=== PATIENT | female | born 1945 | race Caucasian/White ===

== ENCOUNTER 2019-09-05 10:19 | Outpatient (CLI) | payer MEDICARE, OTHER, SELFPAY ==
--- NOTE | 2019-09-05 10:24 | MM_ITS ---
WS: [id number] BILATERAL DIGITAL SCREENING MAMMOGRAPHY WITH CAD CLINICAL INFORMATION: SCREENING HISTORY: Screening mammogram. No current complaints. COMPARISON: August 05, 2018 TECHNIQUE: Bilateral CC and MLO views. FINDINGS: The breasts are composed of heterogeneous fibroglandular density tissue, which can limit the detectio n of small underlying mass lesions. Punctate and lucent calcifications. Secretory calcifications. Sta ble clustered calcifications. Stable nodular bilateral parenchymal tissue. No suspicious mass, asymme try, calcifications, or architectural distortion. No evidence of malignancy. MM/[id number] IMPRESSION: BI-RADS: 2-Benign FOLLOW UP: 1 Year Follow-up Recommend return to annual screening mammography.
== END 2019-09-05 10:20 | disposition home or self-care (01) ==
LOC: RADSHAW 10:20
PROVIDERS: Family Provider Family Medicine; PCP Family Medicine; Visit Provider Family Medicine
DX: Z12.31 Encounter for screening mammogram for malignant neoplasm of breast (principal)
CPT/HCPCS: 77067

== ENCOUNTER 2020-02-02 11:28 | Outpatient (CLI) | payer MEDICARE, OTHER, SELFPAY ==
--- NOTE | 2020-02-02 11:38 | MM_ITS ---
WS: [id number] DIAGNOSTIC RIGHT DIGITAL MAMMOGRAM WITH CAD RIGHT breast ultrasound, limited HISTORY: RT BREAST LUMP 11 O'CLOCK, new palpable nodule COMPARISON: 09/05/2019, 08/05/2018, 07/27/2017, 07/21/2016, 07/19/2014 Technique: CC, MLO and ML views. Spot compression RIGHT CC. Breast composition: There are scattered areas of fibroglandular density. The palpable area correspon ds to a slightly lobulated 8 mm mass which has been described on multiple prior studies. This is slig htly tubular and elongated. No significant increase in size. There are additional scattered calcifica tions and asymmetries throughout the RIGHT breast which are stable since at least 07/27/2017. RIGHT breast ultrasound: Ultrasound directed to the palpable abnormality reveals a lobulated complex cystic mass or dilated du ct measuring 7 x 7 x 6 mm. This could be a sebaceous cyst as it does extend very close to the surface of the breast. There is an additional minimally complex cyst at 12:00. MM/[place] [id number] IMPRESSION: BI-RADS: 2-Benign FOLLOW UP: See Report Patient to return to annual screening mammography. Clinically if there is a pal pable mass of concern surgical excision can be performed.
== END 2020-02-02 11:29 | disposition home or self-care (01) ==
LOC: RADSHAW 11:35
PROVIDERS: PCP Family Medicine; Visit Provider Nurse Practitioner Family
DX: N63.11 Unspecified lump in the right breast, upper outer quadrant (principal)
CPT/HCPCS: 76642; 77065

== ENCOUNTER 2020-03-16 10:54 | Outpatient (CLI) | payer MEDICARE, OTHER, SELFPAY ==
--- NOTE | 2020-03-16 11:05 | XR_ITS ---
WS: [id number] HIP WITH PELVIS RIGHT TECHNIQUE: 3 views of the right hip with pelvis CLINICAL INFORMATION: HIP PAIN, RIGHT COMPARISON: None. FINDINGS: Normal right hip. No acute fractures. Normal visualized right pubic rami. XR/XR hip RT 2-3V wo/w pel* [id number] IMPRESSION: Normal right hip
== END 2020-03-16 10:55 | disposition home or self-care (01) ==
PROVIDERS: PCP Family Medicine; Visit Provider Family Medicine
DX: M25.551 Pain in right hip (principal)
CPT/HCPCS: 73502

== ENCOUNTER → 2020-06-15 09:59 | Day surgery (SDC) | payer MEDICARE, OTHER, SELFPAY ==
--- NOTE | 2020-06-15 10:25 | PC.NURSE ---
Creatinine clearance is 72.4ml/min today. Calcium is WNL 9.5 from blood work on Jun,. Per guidelines, okay to proceed with Reclast.
[2020-06-15 10:32] VITALS: BP 147/87; PULSE 120; RESP 18; TEMP 37.3; O2SAT 98
== END ==
PROVIDERS: PCP Family Medicine; Visit Provider Family Medicine
DX: M81.0 Age-related osteoporosis without current pathological fracture (principal)
CPT/HCPCS: 96365; J3489

== ENCOUNTER 2020-09-07 08:33 | Outpatient (CLI) | payer MEDICARE, OTHER, SELFPAY ==
--- NOTE | 2020-09-07 08:39 | MM_ITS ---
WS: [id number] BILATERAL SCREENING DIGITAL MAMMOGRAM WITH CAD HISTORY: SCREENING COMPARISON: 02/02/2020, 09/05/2019, 08/05/2018 Bilateral CC and MLO views submitted. Computer aided detection analyzed. Breast composition: The breasts are heterogeneously dense, which may obscure small masses. No suspici ous masses, microcalcifications or architectural distortion. There are numerous calcifications and no dules within each breast. Very similar to prior studies. Due to the number of calcifications subtle c hanges are very difficult to visualize. MM/[place] [id number] IMPRESSION: BI-RADS: 2-Benign FOLLOW UP: 1 Year Follow-up
== END 2020-09-07 08:34 | disposition home or self-care (01) ==
LOC: RADSHAW 08:37
PROVIDERS: PCP Family Medicine; Visit Provider Nurse Practitioner Family
DX: Z12.31 Encounter for screening mammogram for malignant neoplasm of breast (principal)
CPT/HCPCS: 77067

== ENCOUNTER → 2021-10-01 09:47 | Day surgery (SDC) | payer MEDICARE, OTHER, SELFPAY ==
[2021-10-01 10:21] VITALS: BMI 25.6
[2021-10-01 10:22] VITALS: BP 137/82; PULSE 116; RESP 18; TEMP 36.8; O2SAT 95
[2021-10-01 10:33] LABS: Blood Urea Nitrogen 27 mg/dL (8-23); Calcium 9.8 mg/dL (8.5-10.5)
--- NOTE | 2021-10-01 10:40 | PC.NURSE ---
Creatnine Clearance 77.5. Calcium WNL. Okay to proceed with Reclast infusion.
== END ==
PROVIDERS: PCP Family Medicine; Visit Provider Family Medicine
DX: M81.0 Age-related osteoporosis without current pathological fracture (principal)
CPT/HCPCS: 36415; 82310; 82565; 84520; 96365; J3489

== ENCOUNTER 2021-10-11 10:31 | Outpatient (CLI) | payer MEDICARE, OTHER, SELFPAY ==
--- NOTE | 2021-10-11 10:42 | MM_ITS ---
WS: [id number] BILATERAL SCREENING DIGITAL MAMMOGRAM WITH CAD HISTORY: SCREENING COMPARISON: 09/07/2020, 02/02/2020 and 07/27/2017 Bilateral CC and MLO views submitted. Computer aided detection analyzed. Breast composition: There are scattered areas of fibroglandular density. No suspicious masses, microc alcifications or architectural distortion. Numerous bilateral asymmetries and nodules and calcificati ons within each breast. No suspicious mass or increasing size of mass. Calcifications are benign. MM/[place] [id number] IMPRESSION: BI-RADS: 2-Benign FOLLOW UP: 1 Year Follow-up
== END 2021-10-11 10:32 | disposition home or self-care (01) ==
LOC: RADSHAW 10:33
PROVIDERS: PCP Family Medicine; Visit Provider Family Medicine
DX: Z12.31 Encounter for screening mammogram for malignant neoplasm of breast (principal)
CPT/HCPCS: 77067

== ENCOUNTER → 2021-12-16 12:31 | Outpatient (BNVA) | payer MEDICARE, OTHER, SELFPAY | PROVIDERS: PCP Family Medicine; Visit Provider Internal Medicine Cardiovascular Disease | DX: I49.9 Cardiac arrhythmia, unspecified (principal); I49.1 Atrial premature depolarization; I49.3 Ventricular premature depolarization | CPT/HCPCS: 93225 ==

== ENCOUNTER → 2022-03-25 14:16 | Outpatient (BNVA) | payer MEDICARE, OTHER, SELFPAY | PROVIDERS: PCP Family Medicine; Visit Provider Clinical Nurse Specialist Adult Health | DX: U07.1 COVID-19 (principal); J30.9 Allergic rhinitis, unspecified; J34.2 Deviated nasal septum; M26.629 Arthralgia of temporomandibular joint, unspecified side; N39.0 Urinary tract infection, site not specified; R11.0 Nausea | CPT/HCPCS: 80053; 81000; 85025; 85651; 86140; 87086 ==

== ENCOUNTER → 2022-04-08 11:12 | Outpatient (BNVA) | payer MEDICARE, OTHER, SELFPAY | PROVIDERS: PCP Family Medicine; Visit Provider Internal Medicine Cardiovascular Disease | DX: I47.1 Supraventricular tachycardia (principal); I10 Essential (primary) hypertension; Z86.39 Personal history of other endocrine, nutritional and metabolic disease; R00.2 Palpitations; Z87.891 Personal history of nicotine dependence | CPT/HCPCS: 36415; 80048; 83735; 84443; 99204 ==

== ENCOUNTER → 2022-05-27 10:20 | Outpatient (BNVA) | payer MEDICARE, OTHER, SELFPAY | PROVIDERS: PCP Family Medicine; Visit Provider Family Medicine | DX: Z86.39 Personal history of other endocrine, nutritional and metabolic disease (principal); I10 Essential (primary) hypertension; I47.1 Supraventricular tachycardia | CPT/HCPCS: 80053; 80061; 84443; 85025 ==

== ENCOUNTER 2022-06-07 13:59 | Emergency (ER) | payer MEDICARE, OTHER, SELFPAY ==
[2022-06-07 14:09] VITALS: BP 188/98; PULSE 67; RESP 17; TEMP 36.4; O2SAT 97; BMI 23.9
--- NOTE | 2022-06-07 14:31 | ECG_ITS ---
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 Measurements Intervals [place] Rate: 64 P: 87 MN: 175 QRS: 85 QRSD: 90 T: 83 QT: 427 QTc: 442 Interpretive Statements SINUS RHYTHM No previous ECG available for comparison Electronically Signed On 06-08-2022 10:14:49 CDT by Derian Woodson M.D. [id number]
--- NOTE | 2022-06-07 14:38 | XRR_ITS ---
PROCEDURE INFORMATION: Exam: XR Chest Exam date and time: 06/07/2022 3:33 PM Age: 76 years old Clinical indication: Other: Palp; Additional info: Palpitations TECHNIQUE: Imaging protocol: Radiologic exam of the chest. Views: 1 view. COMPARISON: CT chest con [id number] 12/03/2018 9:29 AM FINDINGS: Lungs: Unremarkable. No consolidation. Pleural spaces: Unremarkable. No pleural effusion. No pneumothorax. Heart/Mediastinum: Unremarkable. No cardiomegaly. Bones/joints: Unremarkable. XR/XR chest 1V portable [id number] IMPRESSION: No acute findings.
--- NOTE | 2022-06-07 15:30 | ED_ITS ---
HPI - Arrhythmia/Palpitations General: Chief Complaint: Arrhythmia/Palpitations Stated Complaint: Headache Time Seen by Provider: 06/07/22 15:30 History of Present Illness: Ms. Aviles is a 76-year-old lady with significant past medical history of hypertension, hyperlipidemia, recent medication switch to flecainide presenting to the emergency department due to generalized illness. Onset of symptoms was yesterday about 4 PM. She noticed fluttering in her heart associated with frontal headache which feels like pressure with some associated muscular neck pain. Additionally she has felt nauseous. Overall intensity symptoms is moderate to severe. Denies frequent history of headaches. No other specific changes in health, exacerbating, or alleviating factors identified. Onset (ago): hour(s) Duration: constant Severity: moderate Associated symptoms: Reports nausea and other Review of Systems General: Reports: 10 or more systems reviewed and unremarkable except in HPI and below GI: Reports: nausea PFSH ED PFSH: Medical History History of arthritis History of gastroesophageal reflux (GERD) History of hyperlipidemia Hypertension IBS (irritable bowel syndrome) Surgical History S/P hysterectomy Family History Father Cancer Mother Cancer Brother No problems noted. Son Atrial fibrillation Other Hypertension Social History Smoking and tobacco status: former smoker Quit status (tobacco): has quit using tobacco Year quit tobacco: 1990 Former quit date comment: 3 PPD x 20 years Physical Exam Const: COMMON NORMALS: patient oriented x3 and alert GENERAL APPEARANCE: cooperative, well developed and ill appearing (mildly) HENMT: COMMON NORMALS: normocephalic and atraumatic HEAD & SCALP: normocephalic and atraumatic THROAT: posterior oropharynx normal Eye: COMMON NORMALS: conjunctivae normal CONJUNCTIVA: Yes conjunctivae normal SCLERA: sclerae normal Neck/C-Spine: COMMON NORMALS: supple and no meningeal signs GENERAL: Yes trachea midline Resp: COMMON NORMALS: clear to auscultation bilaterally EFFORT & INSPECTION: Yes able to speak in complete sentences AUSCULTATION: clear to auscultation bilaterally Cardio: COMMON NORMALS: regular rate and regular rhythm RATE: regular rate RHYTHM: regular rhythm GI: COMMON NORMALS: Soft to palpation PALPATION: Yes Soft to palpation and No Tenderness to palpation present (GI) Extremity: GENERAL: Yes normal exam except as noted and No edema Neuro: COMMON NORMALS: patient oriented x3, CN's II-XII intact bilaterally, moves all extremities, no focal motor deficits and no sensory deficits noted SENSORIUM/ORIENTATION: Yes alert and No Orientation impaired MENINGEAL SIGNS: Yes no meningeal signs Psych: COMMON NORMALS: mental status grossly normal and Normal thought process present THOUGHT PROCESS: Normal thought process present Course Vital Signs: Vital signs: Vital Signs Temperature 97.6 F 06/07/22 14:09 Pulse Rate 97 06/07/22 17:42 Respiratory Rate 18 06/07/22 17:42 Blood Pressure 188/98 06/07/22 14:09 Pulse Oximetry 97 06/07/22 17:42 Oxygen Delivery Me thod 06/07/22 17:42 MDM - Arrhythmia/Palpitations Medical Decision Making 76-year-old lady presenting with generalized illness. Patient is mildly ill however nontoxic on exam, no neurologic deficits appreciated associated with headache. EKG shows sinus rhythm, no STEMI. Laboratory studies with minimal leukocytosis, no significant metabolic abnormalities. 2-hour delta troponin is negative. Flu and COVID negative. Chest x-ray with no lobar consolidation or pneumothorax. CT head negative for acute pathology. Patient improved with symptom treatment in the emergency department. Most likely cause of patient's symptoms is unclear The results of ED evaluation were discussed with the patient including prescriptions and/or symptomatic cares (if applicable) including appropriate and responsible use, followup plan, and return precautions. The patient verbalized understanding and felt safe for discharge. Medical Records I reviewed the patient's medical records. Lab Data I reviewed the patient's lab results. : 06/07/22 15:25 06/07/22 15:25 Radiology Impressions Chest X-Ray 06/07/22 14:38 IMPRESSION: No acute findings. Head CT 06/07/22 16:31 IMPRESSION: No acute intracranial abnormality. Laboratory Results WBC 10.2 10^3/uL (4.0-10.0) H 06/07/22 15:25 RBC 5.07 10^6/uL (4.1-5.3) 06/07/22 15:25 Hgb 14.9 g/dL (11.5-15.3) 06/07/22 15:25 Hct 46.4 % (37.0-47.0) 06/07/22 15:25 MCV 91.5 fl (81-99) 06/07/22 15:25 MCH 29.4 pg (28.0-34.0) 06/07/22 15:25 MCHC 32.1 g/dL (30.0-36.0) 06/07/22 15:25 RDW 14.6 % (12.1-15.1) 06/07/22 15:25 Plt Count 441 10^3/cmm (130-400) H 06/07/22 15:25 MPV 9.4 fL (7.4-10.4) 06/07/22 15:25 Neut % (Auto) 76.1 % 06/07/22 15:25 Lymph % (Auto) 15.9 % 06/07/22 15:25 Robeson % (Auto) 6.0 % 06/07/22 15:25 Eos % (Auto) 1.0 % 06/07/22 15:25 Baso % (Auto) 0.7 % 06/07/22 15:25 Neut # (Auto) 7.78 10^3/uL (1.8-7.7) H 06/07/22 15:25 Lymph # (Auto) 1.6 10^3/uL (0.8-4.8) 06/07/22 15:25 Robeson # (Auto) 0.6 10^3/uL (0.2-0.9) 06/07/22 15:25 Eos # (Auto) 0.1 10^3/uL (0.0-0.8) 06/07/22 15:25 Baso # (Auto) 0.1 10^3/uL (0.0-0.1) 06/07/22 15: Nucleated RBC % (auto) 0 % 06/07/22 15:25 Nucleated RBCs # 0.0 /100WBC 06/07/22 15:25 Sodium 139 mmol/L (136-145) 06/07/22 15:25 Potassium 3.9 mmol/L (3.5-5.1) 06/07/22 15:25 Chloride 100 mmol/L (98-107) 06/07/22 15:25 Carbon Dioxide 26 mmol/L (22-29) 06/07/22 15:25 Anion Gap 16.9 (5-19) 06/07/22 15:25 BUN 21 mg/dL (8-23) 06/07/22 15:25 Creatinine 0.5 mg/dL (0.5-0.9) 06/07/22 15:25 GFR Calculation Not Reportable 06/07/22 15:25 Glucose 97 mg/dL (65-115) 06/07/22 15:25 Calculated Osmolality 291 mOsm/kg (285-295) 06/07/22 15:25 Calcium 9.3 mg/dL (8.5-10.5) 06/07/22 15:25 Magnesium 2.3 mg/dL (1.7-2.3) 06/07/22 15:25 Total Bilirubin 0.6 mg/dL (0.15-1.2) 06/07/22 15:25 AST 14 U/L (0-32) 06/07/22 15:25 ALT 9 U/L (0-33) 06/07/22 15:25 Alkaline Phosphatase 97 U/L (35-105) 06/07/22 15:25 Troponin T Baseline 14 ng/L (0-10) H 06/07/22 15:25 Troponin T 120 Minute 10.56 ng/L (0-10) H 06/07/22 17:41 Delta Troponin T -3.44 ABS# (0-10) L 06/07/22 17:41 NT-Pro-B Natriuret Pep 828 pg/mL (0-450) H 06/07/22 15:25 Total Protein 6.8 g/dL (6.6-8.7) 06/07/22 15:25 Albumin 4.5 g/dL (3.5-5.2) 06/07/22 15:25 Globulin 2.3 g/dL (1.3-4.6) 06/07/22 15:25 TSH 0.87 uIU/mL (0.27-4.20) 06/07/22 15:25 Influenza Type A Ag negative (Negative) 06/07/22 16:45 Influenza Type B Ag negative (Negative) 06/07/22 16:45 SARS-CoV-2 Ag (Rapid) negative (Negative) 06/07/22 16:45 Discharge Plan Discharge Patient Disposition: Home Clinical Impression: Headache, Hypertension, Palpitations, Malaise and fatigue Condition: Stable Prescriptions: No Action meloxicam 15 mg tablet 15 mg PO DAILY aspirin [Adult Aspirin Regimen] 81 mg tablet,delayed release (DR/EC) 81 mg PO DAILY magnesium oxide 250 mg magnesium tablet 250 mg PO DAILY Qty: 90 0RF potassium gluconate 600 mg (99 mg) tablet 600 mg PO DAILY Qty: 90 0RF fluoxetine 20 mg capsule 20 mg PO DAILY fluticasone propionate 50 mcg/actuation spray,suspension 2 spray intranasal DAILY Rx Instructions: administer into each nostril atorvastatin 10 mg tablet 10 mg PO DAILY lisinopril 5 mg tablet 5 mg PO DAILY Qty: 180 3RF diclofenac sodium [Voltaren Arthritis Pain] 1 % gel 4 g topical QID Qty: 100 0RF Rx Instructions: apply to left leg up to qid. lisinopril-hydrochlorothiazide 20-12.5 mg tablet 0.5 tab PO DAILY PRN (Reason: Take 0.5 tab if BP >140/90) Qty: 90 3RF Hold Instructions: Doctor's Order metoprolol tartrate 25 mg tablet 25 mg PO BID Qty: 180 2RF Hold Instructions: Patient No Longer Taking flecainide 50 mg tablet 50 mg PO Q12H Qty: 60 3RF Discharge Orders: Discharge ED (Routine); Ordered 06/07/22 Ordered By: Irwin Hawk Referrals: Kati Cohen MD [Primary Care Provider] - Discharge Diet: Usual diet Discharge Activity: Increase activity as tolerated Patient Instructions: Heart Palpitations (ED), Acute Headache (ED), Hypertension (ED) Activity Restrictions/Additional Instructions: Thank you for visiting the emergency department. You were seen and evaluated for headache and palpitations as well as generalized symptoms. The exact cause of your symptoms is unclear. As discussed, I recommend follow-up with cardiology. Return to the emergency department for worsening symptoms, any new neurologic symptoms, or anything else that you are concerned about a feel needs emergency department evaluation. Coding Level of Care Code ED Diesel Stationary Engineer for Consuelo Khan
[2022-06-07 15:35] LABS: Basophils # 0.1 10^3/uL (0.0-0.1); Basophils % 0.7 %; Eosinophils # 0.1 10^3/uL (0.0-0.8); Hematocrit 46.4 % (37.0-47.0); Hemoglobin 14.9 g/dL (11.5-15.3); Lymphocytes # 1.6 10^3/uL (0.8-4.8); Lymphocytes % 15.9 %; Mean Corpuscular HGB Conc 32.1 g/dL (30.0-36.0); Mean Corpuscular Hemoglobin 29.4 pg (28.0-34.0); Mean Corpuscular Volume 91.5 fl (81-99); Mean Platelet Volume 9.4 fL (7.4-10.4); Monocytes # 0.6 10^3/uL (0.2-0.9); Neutrophils # 7.78 10^3/uL (1.8-7.7); Neutrophils % 76.1 %; Nucleated Red Blood Cells % 0 %; Platelet Count 441 10^3/cmm (130-400); Red Blood Count 5.07 10^6/uL (4.1-5.3); Red Cell Distribution Width 14.6 % (12.1-15.1); White Blood Count 10.2 10^3/uL (4.0-10.0)
[2022-06-07 15:52] LABS: Troponin(5th) Baseline 14 ng/L (0-10)
[2022-06-07 16:06] LABS: Alanine Aminotransferase 9 U/L (0-33); Albumin Level 4.5 g/dL (3.5-5.2); Alkaline Phosphatase 97 U/L (35-105); Anion Gap 16.9 (5-19); Aspartate Amino Transferase 14 U/L (0-32); Blood Urea Nitrogen 21 mg/dL (8-23); Calcium 9.3 mg/dL (8.5-10.5); Carbon Dioxide 26 mmol/L (22-29); Chloride 100 mmol/L (98-107); Globulin 2.3 g/dL (1.3-4.6); Glucose 97 mg/dL (65-115); Magnesium 2.3 mg/dL (1.7-2.3); NT Pro B Type Natriuretic Pept 828 pg/mL (0-450); Osmolality Calculated 291 mOsm/kg (285-295); Potassium 3.9 mmol/L (3.5-5.1); Sodium 139 mmol/L (136-145); Thyroid Stimulating Hormone 0.87 uIU/mL (0.27-4.20); Total Bilirubin 0.6 mg/dL (0.15-1.2); Total Protein 6.8 g/dL (6.6-8.7)
[2022-06-07] MEDS: sodium chloride 0.9% 1,000 ML 999 ML IV (16:31)
--- NOTE | 2022-06-07 16:31 | CTR_ITS ---
PROCEDURE INFORMATION: Exam: CT Head Without Contrast Exam date and time: 06/07/2022 5:01 PM Age: 76 years old Clinical indication: Pain; Headache not specified TECHNIQUE: Imaging protocol: Computed tomography of the head without contrast. Radiation optimization: All CT scans at this facility use at least one of these dose optimization techniques: automated exposure control; mA and/or kV adjustment per patient size (includes targeted exams where dose is matched to clinical indication); or iterative reconstruction. COMPARISON: No relevant prior studies available. RADIATION DOSE METRICS: Total DLP (mGy-cm): 946.37 FINDINGS: Brain: No hemorrhage. No edema. Moderate diffuse cerebral atrophy and mild sequela of chronic small vessel ischemic disease. No mass effect. Cerebral ventricles: No ventriculomegaly. Paranasal sinuses: Visualized sinuses are unremarkable. No fluid levels. Mastoid air cells: Visualized mastoid air cells are well aerated. Bones/joints: Unremarkable. No acute fracture. Soft tissues: Unremarkable. CT/CT head wo con* [id number] IMPRESSION: No acute intracranial abnormality.
[2022-06-07] MEDS: diphenhydrAMINE 50 mg/mL SDV 1mL 12.5 MG IVP (16:32)
[2022-06-07] MEDS: metoclopramide 5 mg/mL SDV 2 mL IVP (16:33)
[2022-06-07] MEDS: ketorolac 30 mg/mL INJ 15 MG IVP (16:34)
--- NOTE | 2022-06-07 16:39 | ECG_ITS ---
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 Measurements Intervals [place] Rate: 64 P: 82 OK: 154 QRS: 60 QRSD: 89 T: 65 QT: 411 QTc: 424 Interpretive Statements SINUS RHYTHM Compared to ECG 06/07/2022 14:31:04 No significant changes Electronically Signed On 06-08-2022 10:18:18 CDT by Derian Woodson M.D. [id number]
[2022-06-07 17:06] LABS: SARS Covid-2 Antigen negative (Negative)
[2022-06-07 17:07] LABS: Influenza A by IFA negative (Negative); Influenza B by IFA negative (Negative)
[2022-06-07 17:42] VITALS: PULSE 97; RESP 18; O2SAT 97
[2022-06-07 18:12] LABS: Troponin 5 2HR 10.56 ng/L (0-10)
[2022-06-07 18:27] LABS: Troponin 5 2HR Delta -3.44 ABS# (0-10)
== END 2022-06-07 18:52 | disposition home or self-care (01) ==
PROVIDERS: Emergency Provider Emergency Medicine; PCP Internal Medicine Cardiovascular Disease
DX: R51.9 Headache, unspecified (principal); I10 Essential (primary) hypertension; R00.2 Palpitations; R53.81 Other malaise; R53.83 Other fatigue; Z79.82 Long term (current) use of aspirin; Z20.822 Contact with and (suspected) exposure to COVID-19; E78.5 Hyperlipidemia, unspecified; Z87.891 Personal history of nicotine dependence
CPT/HCPCS: 36415; 70450; 71045; 80053; 83735; 83880; 84443; 84484; 85025; 87426; 87804; 93005; 96361; 96374; 96375; 99285; J1200; J1885; J2765; J7030

== ENCOUNTER → 2022-06-11 10:01 | Outpatient (BNVA) | payer MEDICARE, OTHER, SELFPAY | PROVIDERS: PCP Pediatrics; Visit Provider Nurse Practitioner Family | DX: I10 Essential (primary) hypertension (principal); I47.1 Supraventricular tachycardia; Z87.891 Personal history of nicotine dependence | CPT/HCPCS: 99213; 99214 ==

== ENCOUNTER → 2022-09-25 10:29 | Outpatient (BNVA) | payer MEDICARE, OTHER, SELFPAY | PROVIDERS: PCP Family Medicine; Visit Provider Internal Medicine Cardiovascular Disease | DX: I47.1 Supraventricular tachycardia (principal); I10 Essential (primary) hypertension; E78.5 Hyperlipidemia, unspecified; Z87.891 Personal history of nicotine dependence | CPT/HCPCS: 99213 ==

== ENCOUNTER → 2022-10-10 09:40 | Outpatient (BNVA) | payer MEDICARE, OTHER, SELFPAY | PROVIDERS: PCP Family Medicine; Visit Provider Dermatology | DX: L72.0 Epidermal cyst (principal) | CPT/HCPCS: 88304 ==

== ENCOUNTER 2022-10-16 12:21 | Outpatient (CLI) | payer MEDICARE, OTHER, SELFPAY ==
--- NOTE | 2022-10-16 13:01 | MM_ITS ---
WS: [id number] Bilateral screening 3D tomosynthesis digital mammogram, 10/16/2022 Clinical Data: SCREENING Comparison: 10/11/2021, 09/07/2020, 02/02/2020, 09/05/2019, 08/05/2018, 07/27/2017, 07/21/2016, 07/20/2015 , 07/19/2014, 07/18/2013, 07/02/2012 06/19/2011 05/23/2010, 05/03/2009, 05/02/2008 Findings: The breast parenchymal pattern shows glandular tissue. No spiculated masses or clustered calcificatio ns are seen. There are no secondary signs of carcinoma. There are scattered ductal and other benign c alcifications throughout both breasts unchanged. MM/[place] [id number] Impression: 1. Negative bilateral mammogram unchanged. 2. Recommend annual screening mammograms. BIRADS: 1-Negative FOLLOW UP: 1 Year Follow-up The CAD job checker was used.
== END 2022-10-16 12:22 | disposition home or self-care (01) ==
LOC: RAD 12:27
PROVIDERS: PCP Family Medicine; Visit Provider Family Medicine
DX: Z12.31 Encounter for screening mammogram for malignant neoplasm of breast (principal)
CPT/HCPCS: 77063; 77067

== ENCOUNTER 2022-10-27 08:49 | Outpatient (CLI) | payer MEDICARE, OTHER, SELFPAY ==
[2022-10-27 10:38] LABS: Blood Urea Nitrogen 15 mg/dL (8-23); Calcium 9.5 mg/dL (8.5-10.5); Carbon Dioxide 31 mmol/L (22-29); Chloride 101 mmol/L (98-107); Glucose 108 mg/dL (65-115); NT Pro B Type Natriuretic Pept 158 pg/mL (0-450); Osmolality Calculated 289 mOsm/kg (285-295); Sodium 139 mmol/L (136-145)
[2022-10-27 10:46] LABS: Anion Gap 11.5 (5-19); Potassium 4.5 mmol/L (3.5-5.1)
== END 2022-10-27 08:50 | disposition home or self-care (01) ==
LOC: LAB 08:54
PROVIDERS: PCP Family Medicine; Visit Provider Nurse Practitioner Family
DX: I10 Essential (primary) hypertension (principal); I50.9 Heart failure, unspecified
CPT/HCPCS: 36415; 80048; 83880

== ENCOUNTER 2022-11-14 13:34 | Outpatient (CLI) | payer MEDICARE, OTHER, SELFPAY ==
--- NOTE | 2022-11-14 14:00 | USCV_ITS ---
AvilesKarina clayton Age: 77 Gender: F : 1945 Exam Date: 11/14/2022 14:28 Ordering Phys: Nichol Oneill Technologist: [place] [facility] [place]: chf BP: 124 / 74 HR: 67 Rhythm: Sinus Technical Quality: Adequate MEASUREMENTS (Male / Female) Normal Values 2D ECHO LV Diastolic Diameter PLAX 2.9 cm 4.2 - 5.9 / 3.9 - 5.3 cm LV Systolic Diameter PLAX 2.0 cm IVS Diastolic Thickness 1.2 cm 0.6 - 1.0 / 0.6 - 0.9 cm IVS Systolic Thickness 1.2 cm LVPW Diastolic Thickness 1.3 cm 0.6 - 1.0 / 0.6 - 0.9 cm LVPW Systolic Thickness 1.5 cm LVOT Diameter 1.9 cm LV Ejection Fraction 2D Teich 59.6 % LV Ejection Fraction MOD 2C 67.3 % LV Ejection Fraction 2C AL 67.4 % LA Diameter 3.2 cm IVC Diameter 1.6 cm M-MODE LV Diastolic Diameter MM 4.9 cm 4.2 - 5.9 / 3.9 - 5.3 cm LV Systolic Diameter MM 3.4 cm LV Ejection Fraction MM Teich 59.9 % IVS Diastolic Thickness MM 1.5 cm 0.6 - 1.0 / 0.6 - 0.9 cm IVS Systolic Thickness MM 1.9 cm LVPW Diastolic Thickness MM 1.3 cm 0.6 - 1.0 / 0.6 - 0.9 cm LVPW Systolic Thickness MM 1.9 cm RV Diastolic Diameter MM 1.4 cm Aortic Annulus Diameter 3.5 cm LA Ao Ratio MM 0.9 MV E Point Septal Separation 1.9 cm DOPPLER AV Peak Velocity 147.0 cm/s LVOT Peak Velocity 94.0 cm/s AV Area Cont Eq vti 2.1 cm squared AV Area Cont Eq pk 1.9 cm squared MV Area PHT 5.0 cm squared Mitral E to A Ratio 1.0 MV E' Velocity 53.0 cm/s Mitral E to MV E' Ratio 8.1 Mitral E to LV E' Lateral Ratio 7.2 Mitral E to LV E' Septal Ratio 9.2 TR Peak Velocity 134.3 cm/s TR Peak Gradient 7.2 mmHg TV Peak E Velocity 89.0 cm/s Right Atrial Pressure 3.0 mmHg Pulmonary Artery Systolic Pressu 10.2 mmHg RV Acceleration Time 0.1 s FINDINGS Left Ventricle Left ventricle is normal in size. LV systolic function is normal with EF of 60 to 65%. No regional wall motion abnormalities are seen. Right Ventricle Normal in size and function. Right Atrium Normal in size Left Atrium Normal in size Mitral Valve Structurally normal mitral valve. Trace mitral regurgitation. Aortic Valve Structurally normal aortic valve. No significant stenosis or regurgitation is seen Tricuspid Valve Mild tricuspid regurgitation. Pulmonary artery systolic pressure is normal. Pulmonic Valve Not well-visualized. Pericardium Normal Aorta Normal in size IVC Appears to be normal CONCLUSIONS LV systolic function is normal with EF of 60-65% Trace mitral regurgitation Mild tricuspid regurgitation No comparison studies are available Jesse Blankenship MD (Electronically Signed) Final Date: 14 November 2022 16:04 S
== END 2022-11-14 13:35 | disposition home or self-care (01) ==
LOC: RAD 13:37
PROVIDERS: PCP Clinical Nurse Specialist Adult Health; Visit Provider Nurse Practitioner Family
DX: I11.0 Hypertensive heart disease with heart failure (principal); I50.9 Heart failure, unspecified
CPT/HCPCS: 93306

== ENCOUNTER → 2022-11-18 09:41 | Outpatient (BNVA) | payer MEDICARE, OTHER, SELFPAY | PROVIDERS: PCP Clinical Nurse Specialist Adult Health; Visit Provider Family Medicine | DX: I10 Essential (primary) hypertension (principal) | CPT/HCPCS: 80053; 80061; 85025 ==

== ENCOUNTER → 2022-12-16 08:26 | Outpatient (BNVA) | payer MEDICARE, OTHER, SELFPAY | PROVIDERS: PCP Clinical Nurse Specialist Adult Health; Visit Provider Clinical Nurse Specialist Adult Health | DX: I10 Essential (primary) hypertension (principal) | CPT/HCPCS: 80048; 85025 ==

== ENCOUNTER 2022-12-19 12:47 | Outpatient (CLI) | payer MEDICARE, OTHER, SELFPAY ==
--- NOTE | 2022-12-19 13:00 | XR_ITS ---
WS: [id number] DEXA (DUAL ENERGY X-RAY ABSORPTIOMETRY) Bone mineral density was performed using a So1 machine. HISTORY: osteopenia COMPARISON: 12/21/2018 Lumbar spine BMD (L1-L4): 1.032 g/cm2 T score: -1.2 Z score: 0.6 Total hip BMD: Left: 0.727 g/cm2. T score: -2.2 Z score: -0.2 Right: 0.695 g/cm2. T score: -2.5 Z score: -0.5 10 year probability of a major osteoporotic fracture is 30.2%. Compared to the prior study from 12/21/2018. Lumbar spine bone mineral density has increased by 6.0%. Bilateral hips bone mineral density has increased by 2.5%. XR/XR DEXA axial skeleton* [id number] IMPRESSION: OSTEOPOROSIS based upon the WHO classification for females. Bone mineral density has increased within both the lumbar spine and hips since the prior study. Patient is still at increased risk for fracture.
== END 2022-12-19 12:48 | disposition home or self-care (01) ==
LOC: RAD 12:54
PROVIDERS: PCP Clinical Nurse Specialist Adult Health; Visit Provider Clinical Nurse Specialist Adult Health
DX: M85.80 Other specified disorders of bone density and structure, unspecified site (principal); Z78.0 Asymptomatic menopausal state; M81.0 Age-related osteoporosis without current pathological fracture; I10 Essential (primary) hypertension; Z79.899 Other long term (current) drug therapy
CPT/HCPCS: 77080; 80053; 80061; 85025

== ENCOUNTER → 2022-12-31 09:38 | Outpatient (BNVA) | payer MEDICARE, OTHER, SELFPAY | PROVIDERS: PCP Clinical Nurse Specialist Adult Health; Visit Provider Clinical Nurse Specialist Adult Health | DX: J20.8 Acute bronchitis due to other specified organisms (principal); B96.89 Other specified bacterial agents as the cause of diseases classified elsewhere; Z00.00 Encounter for general adult medical examination without abnormal findings; M85.80 Other specified disorders of bone density and structure, unspecified site | CPT/HCPCS: 82306 ==

== ENCOUNTER 2023-01-25 03:22 | Emergency (ER) | payer MEDICARE, OTHER, SELFPAY ==
[2023-01-25 03:31] VITALS: BP 131/70; PULSE 68; RESP 18; TEMP 36.5; O2SAT 95; BMI 25.4
[2023-01-25 04:00] VITALS: BP 131/79; PULSE 70; O2SAT 96
--- NOTE | 2023-01-25 04:28 | PC.NURSE ---
Pt refuses to be on vital monitor at this time. Pt states there is no need for that
[2023-01-25] MEDS: ketorolac 30 mg/mL INJ IM (05:46)
[2023-01-25] MEDS: predniSONE 20 mg Tablet 40 MG PO (05:48)
[2023-01-25] MEDS: oxyCODONE-APAP 5-325 mg Tablet 2 TAB PO (05:49)
[2023-01-25 06:21] VITALS: BP 162/75; PULSE 60; RESP 18; O2SAT 100
--- NOTE | 2023-01-25 15:10 | W.ED.BACK ---
HPI - Back Pain/Injury General: Chief Complaint: Back Pain/Injury Stated Complaint: right leg pain Time Seen by Provider: 01/25/23 05:21 History of Present Illness: 77 year old female with a prior history of sciatic leg pain. She presents with pain to her right buttock, radiating down her posterior thigh and lateral right leg. No foot drop. She's had these symptoms before. She has taken Tylenol and Advil at home without much relief. she could not sleep last night. No significant numbness or tingling. No centralized back pain. No loss of control of bowel or bladder function. No saddle anesthesia. [facility] ED PFS: Medical History Allergic rhinitis due to allergen History of arthritis History of gastroesophageal reflux (GERD) History of hyperlipidemia Hypertension IBS (irritable bowel syndrome) Osteopenia Osteoporosis Paroxysmal SVT (supraventricular tachycardia) Surgical History Hx of breast biopsy age 23, benign Hx of dilation and curettage Hx of right knee surgery S/P hysterectomy Family History Father Cancer Mother Cancer Brother No problems noted. Son Atrial fibrillation Other Hypertension Social History Smoking and tobacco status: former smoker Quit status (tobacco): has quit using tobacco Year quit tobacco: 1990 Former quit date comment: 3 PPD x 20 years Marital status: / Physical Exam Const: COMMON NORMALS: no acute distress GENERAL APPEARANCE: cooperative; not ill appearing and not frail appearing HENMT: COMMON NORMALS: normocephalic, atraumatic and Normal external nose present HEAD & SCALP: normocephalic and atraumatic FACE & SINUS: normal facial exam and face symmetric NOSE: Normal external nose present Eye: COMMON NORMALS: Equal, round and reactive pupils present and EOMs intact bilaterally PUPIL: Yes Equal, round and reactive pupils present Neck/C-Spine: GENERAL: Yes trachea midline Chest: CHEST: Yes Symmetrical chest wall rise Resp: COMMON NORMALS: normal respiratory effort, No retractions, No use of accessory muscles and clear to auscultation bilaterally AUSCULTATION: clear to auscultation bilaterally Cardio: COMMON NORMALS: regular rate and regular rhythm RATE: regular rate RHYTHM: regular rhythm GI: COMMON NORMALS: Normal to inspection, nondistended, normoactive bowel sounds present Back/Pelvis: OTHER: No midline tenderness. Tenderness over the right buttocks. Straight leg raise test mildly increases symptoms on the right. Sensation is intact. No weakness with dorsiflexion, hip flexion, plantar flexion. Extremity: COMMON NORMALS: no pedal edema Neuro: JEN COMA SCALE: document GCS findings Jen coma scale eye opening: Spontaneous [place] coma scale verbal response: Orientated [place] coma scale motor response: Obey commands Jen coma scale total score: 15 SENSORY EXAM: Yes extremities (intact) Psych: COMMON NORMALS: speech normal SPEECH: Yes normal speech Skin: COMMON NORMALS: no rashes or lesions noted GENERAL SKIN EXAM: no rashes or lesions noted Course Vital Signs: Vital signs: Vital Signs Temperature 97.7 F 01/25/23 03:31 Pulse Rate 60 01/25/23 06:21 Respiratory Rate 18 01/25/23 06:21 Blood Pressure 162/75 01/25/23 06:21 Pulse Oximetry 100 01/25/23 06:21 Oxygen Delivery Me thod Room Air 01/25/23 04:00 MDM - Back Pain/Injury Medical Decision Making Classic sciatica symptoms. She's had these symptoms before. Will treat with a tapering dose of steroid, pain control period outpatient follow up. Red flag symptoms were reviewed with the patient, for return. Discharge Plan Discharge Patient Disposition: Home Clinical Impression: Sciatica Condition: Stable Prescriptions: New hydrocodone-acetaminophen 5-325 mg tablet 1 tab PO Q8H PRN (Reason: pain) Qty: 10 0RF Medrol (Kenny) 4 mg tablets,dose pack See Rx Instructions .ROUTE .COMPLEX Qty: 21 0RF Rx Instructions: orally per package directions No Action meloxicam 15 mg tablet 15 mg PO DAILY aspirin [Adult Aspirin Regimen] 81 mg tablet,delayed release (DR/EC) 81 mg PO DAILY diclofenac sodium [Voltaren Arthritis Pain] 1 % gel 4 g topical QID PRN Rx Instructions: apply to left leg up to qid. loratadine [Allergy Relief (loratadine)] 10 mg tablet 10 mg PO DAILY montelukast [Singulair] 10 mg tablet 10 mg PO DAILY Qty: 90 2RF zoledronic aitz-ruujmtjq-ftgyo [Reclast] 5 mg/100 mL piggyback 1 ea IV .yearly amoxicillin-pot clavulanate [Augmentin] 500-125 mg tablet 1 tab PO TID 10 Days Qty: 30 0RF lisinopril-hydrochlorothiazide 20-12.5 mg tablet 0.5 tab PO BID Qty: 90 3RF Hold Instructions: Doctor's Order atorvastatin 10 mg tablet 10 mg PO DAILY Qty: 30 11RF benzonatate 100 mg capsule 100 mg PO TID PRN (Reason: cough) Qty: 45 0RF flecainide 50 mg tablet 50 mg PO Q12H Qty: 90 3RF Discharge Orders: Discharge ED (Routine); Ordered 01/25/23 Ordered By: Bk Demarco Referrals: Gustavo Laws, LOGISTICS OPERATIONS MANAGER [Primary Care Provider] - 1-3 days Patient Instructions: Sciatica (ED), Opioid Safety, Pain Management Coding Level of Care Code ED Director Of Manufacturing Operations for Consuelo Khan
== END 2023-01-25 05:50 | disposition home or self-care (01) ==
PROVIDERS: Emergency Provider Emergency Medicine; PCP Clinical Nurse Specialist Adult Health
DX: M54.30 Sciatica, unspecified side (principal); Z79.82 Long term (current) use of aspirin; Z87.891 Personal history of nicotine dependence; E78.5 Hyperlipidemia, unspecified; I10 Essential (primary) hypertension
CPT/HCPCS: 96372; 99284; J1885; J7512

== ENCOUNTER → 2023-03-26 11:00 | Outpatient (BNVA) | payer MEDICARE, OTHER, SELFPAY | PROVIDERS: PCP Clinical Nurse Specialist Adult Health; Visit Provider Internal Medicine Cardiovascular Disease | DX: R00.2 Palpitations (principal); U09.9 Post COVID-19 condition, unspecified; I10 Essential (primary) hypertension; E78.5 Hyperlipidemia, unspecified; Z87.891 Personal history of nicotine dependence | CPT/HCPCS: 99213 ==

== ENCOUNTER → 2023-04-01 08:16 | Outpatient (BNVA) | payer MEDICARE, OTHER, SELFPAY | PROVIDERS: PCP Clinical Nurse Specialist Adult Health; Visit Provider Clinical Nurse Specialist Adult Health | DX: Z00.00 Encounter for general adult medical examination without abnormal findings (principal); I10 Essential (primary) hypertension; M81.0 Age-related osteoporosis without current pathological fracture | CPT/HCPCS: 82306 ==

== ENCOUNTER → 2023-04-21 13:53 | Outpatient (BNVA) | payer MEDICARE, OTHER, SELFPAY | PROVIDERS: PCP Clinical Nurse Specialist Adult Health; Visit Provider Dermatology | DX: L73.8 Other specified follicular disorders (principal); D18.01 Hemangioma of skin and subcutaneous tissue; L72.0 Epidermal cyst; L98.8 Other specified disorders of the skin and subcutaneous tissue; L81.4 Other melanin hyperpigmentation | CPT/HCPCS: 99213 ==

== ENCOUNTER 2023-05-19 13:26 | Oncology outpatient (recurring) (ONCR) | payer MEDICARE, OTHER, SELFPAY ==
[2023-05-19 14:05] VITALS: BP 106/69; PULSE 65; RESP 16; TEMP 36.7; O2SAT 96
[2023-05-19] MEDS: zoledronic acid 5 MG in empty flexible container 1 EACH 400 MG IV (14:22)
[2023-05-19 14:45] VITALS: BP 98/63; PULSE 61; RESP 16; TEMP 36.5; O2SAT 97
== END 2023-06-09 23:59 | disposition home or self-care (01) ==
LOC: ONCMED 13:27
PROVIDERS: PCP Clinical Nurse Specialist Adult Health; Visit Provider Clinical Nurse Specialist Adult Health
DX: M81.0 Age-related osteoporosis without current pathological fracture (principal)
CPT/HCPCS: 96365; J3489

== ENCOUNTER → 2023-06-11 11:05 | Outpatient (BNVA) | payer MEDICARE, OTHER, SELFPAY | PROVIDERS: PCP Clinical Nurse Specialist Adult Health; Visit Provider Clinical Nurse Specialist Adult Health | DX: E55.9 Vitamin D deficiency, unspecified (principal); M85.80 Other specified disorders of bone density and structure, unspecified site | CPT/HCPCS: 82306 ==

== ENCOUNTER → 2023-08-11 11:01 | Outpatient (BNVA) | payer OTHER, SELFPAY | PROVIDERS: PCP Clinical Nurse Specialist Adult Health; Visit Provider Clinical Nurse Specialist Adult Health | DX: I10 Essential (primary) hypertension (principal) | CPT/HCPCS: 80053; 82306; 85025 ==

== ENCOUNTER 2023-10-05 12:36 | Outpatient (CLI) | payer OTHER, SELFPAY ==
--- NOTE | 2023-10-05 12:42 | XR_ITS ---
WS: [id number] Exam: XR chest 2V* [id number] Date/Time of Exam: 10/05/2023 12:51 PM Reason For Exam: shortness of breath, worse when lying back Comparison 06/07/2022. The lungs are fully expanded and clear. Normal cardiomediastinal silhouette. Mild dextroscoliosis of the T-spine. Old compression deformity of T8. No pleural effusion. IMPRESSION: 1. No acute cardiopulmonary process.
== END 2023-10-05 12:37 | disposition home or self-care (01) ==
PROVIDERS: PCP Clinical Nurse Specialist Adult Health; Visit Provider Clinical Nurse Specialist Adult Health
DX: R06.02 Shortness of breath (principal)
CPT/HCPCS: 71046

== ENCOUNTER 2023-10-22 09:32 | Outpatient (CLI) | payer OTHER, SELFPAY ==
--- NOTE | 2023-10-22 09:51 | MM_ITS ---
WS: [id number] BILATERAL SCREENING DIGITAL TOMOSYNTHESIS MAMMOGRAM WITH CAD HISTORY: SCREENING COMPARISON: 10/16/2022, 10/11/2021 Bilateral CC and MLO views with tomosynthesis and synthetic mammography submitted. Computer aided det ection analyzed. Breast composition: There are scattered areas of fibroglandular density. No suspicious masses, microc alcifications or architectural distortion. Numerous scattered nodules and calcifications. As compared to the prior study no interval change. IMPRESSION: MM/[place] [id number] BI-RADS: 2-Benign FOLLOW UP: 1 Year Follow-up
== END 2023-10-22 09:33 | disposition home or self-care (01) ==
LOC: RAD 09:32
PROVIDERS: PCP Clinical Nurse Specialist Adult Health; Visit Provider Clinical Nurse Specialist Adult Health
DX: Z12.31 Encounter for screening mammogram for malignant neoplasm of breast (principal)
CPT/HCPCS: 77063; 77067

== ENCOUNTER 2023-12-09 08:43 | Outpatient (CLI) | payer MEDICARE, OTHER, SELFPAY ==
[2023-12-09 09:11] VITALS: PULSE 64; RESP 18; O2SAT 99
[2023-12-09] MEDS: albuterol 2.5 mg/3 mL Neb INHALATION (09:11)
[2023-12-09 09:15] VITALS: PULSE 73
== END 2023-12-09 08:44 | disposition home or self-care (01) ==
LOC: RT 08:44
PROVIDERS: PCP Clinical Nurse Specialist Adult Health; Visit Provider Clinical Nurse Specialist Adult Health
DX: R05.3 Chronic cough (principal); R06.02 Shortness of breath
CPT/HCPCS: 94060; J7613

== ENCOUNTER → 2024-03-17 10:32 | Outpatient (BNVA) | payer MEDICARE, OTHER, SELFPAY | PROVIDERS: PCP Clinical Nurse Specialist Adult Health; Visit Provider Internal Medicine Cardiovascular Disease | DX: I10 Essential (primary) hypertension (principal); E78.5 Hyperlipidemia, unspecified; J41.0 Simple chronic bronchitis; I47.19 Other supraventricular tachycardia; Z87.891 Personal history of nicotine dependence | CPT/HCPCS: 99213 ==

== ENCOUNTER → 2024-04-21 12:51 | Outpatient (BNVA) | payer MEDICARE, OTHER, SELFPAY | PROVIDERS: PCP Clinical Nurse Specialist Adult Health; Visit Provider Nurse Practitioner Family | DX: L57.0 Actinic keratosis (principal); D18.01 Hemangioma of skin and subcutaneous tissue; L72.0 Epidermal cyst; L98.8 Other specified disorders of the skin and subcutaneous tissue; L81.4 Other melanin hyperpigmentation | CPT/HCPCS: 17000; 99213 ==

== ENCOUNTER 2024-06-15 14:19 | Outpatient (CLI) | payer MEDICARE, OTHER, SELFPAY ==
--- NOTE | 2024-06-15 14:25 | XR_ITS ---
WS: [id number] XR ribs LT 2V* [id number] REASON FOR EXAM: LEFT SIDED RIB PAIN FINDINGS: No rib fracture or other focal bone abnormality of the left ribs. No underlying lung or pleural abnormality. XR/XR ribs LT 2V* [id number] IMPRESSION: No significant rib abnormality.
== END 2024-06-15 14:20 | disposition home or self-care (01) ==
LOC: RAD 14:22
PROVIDERS: PCP Nurse Practitioner Family; Visit Provider Nurse Practitioner Family
DX: R07.81 Pleurodynia (principal)
CPT/HCPCS: 71100

== ENCOUNTER 2024-08-01 09:18 | Outpatient (CLI) | payer MEDICARE, OTHER, SELFPAY ==
--- NOTE | 2024-08-01 | ECG_ITS ---
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 Interpretive Statements LEXISCAN: Procedure: At the baseline, the blood pressure was 161/110mmHg with a heart rate of 67 bpm. The electrocardiogram showed normal sinus rhythm, normal axis with normal ST and T's. The Lexiscan was infused over a period of 20 seconds. A total of 0.4 mg of Lexiscan was infused. The stress phase was continued for a total of 5 minutes. Heart rate was at the end of stress phase was 85bpm and a blood pressure of 189/87mmHg. The EKG at the peak infusion revealed normal sinus rhythm with no significant ST-T wave changes. Sestamibi was injected 20 seconds after the Lexiscan infusion. Blood pressure at the end of recovery phase was 174/88 mmHg with a heart rate of 75 bpm. Conclusion: 1. Normal EKG response to Lexiscan infusion 2. No Lexiscan induced chest pain or cardiac arrhythmia. 3. Normal blood pressure and heart rate response. 4. Sestamibi/sestamibi perfusion scan pending; see separate report. Electronically Signed On 08-07-2024 20:34:21 SWEATBAND DRUMMER by Jesse Blankenship M.D. [email or web address]
[2024-08-01 09:35] VITALS: BMI 23.9
--- NOTE | 2024-08-01 09:39 | NMCV_ITS ---
NM aakash perf SPECT r/s* [id number] Karina Aviles Age: 78 Gender: F : 1945 Exam Date: 08/01/2024 10:26 Ordering Phys: Candace Cifuentes Technologist: MURPHY Gomez Exam Location: [facility] Indications: cp STRESS TEST Please see separate stress test report in [facility] for full findings IMAGE PROTOCOL Rest/Stress 1 Lexiscan Day Radiopharmaceutical Dose (mCi) Administration Site Administered by Rest: Tc-99m 10.7 IV MURPHY Gomez Sestamibi Stress:Tc-99m 32.6 IV MURPHY Ravi Sestamibi Rest: 01-Aug-2024 60 Discovery 630 Stress: 01-Aug-2024 30 Discovery 630 0.4mg Lexiscan. Images obtained in supine and prone position. SPECT RESULTS Technical Quality: Good Raw Data Analysis: Normal Image Corrections: No attenuation or motion correction applied Summed Stress Score: 14 Summed Rest Score: 7 Summed Difference Score: 7 PERFUSION FINDINGS There is a medium sized area of moderate intensity, partially reversible perfusion defect seen in the apical, apical septal isaac. This is consistent with medium sized area of prior infarct with medium sized area of lissa-infarct ischemia seen in the LAD territory. Large area of mostly fixed perfusion defect seen in the inferior wall. This is consistent with large area of prior infarct with small sized area of lissa-infarct ischemia in the RCA territory. FUNCTIONAL RESULTS (calculated via Gated SPECT) Stress Image LV EF (%): 57 Stress EDV (mL):77 TID: 0.79 Stress ESV (mL):33 FUNCTIONAL FINDINGS: There is normal left ventricular systolic function. IMPRESSIONS 1. Abnormal myocardial perfusion imaging with medium sized area of prior infarct with medium sized area of lissa-infarct ischemia in the LAD territory. 2. Large area of prior infarct with small area of lissa-infarct ischemia seen in RCA territory 3. LV systolic function is normal Jesse Blankenship MD (Electronically Signed) Final Date: 03 August 2024 16:02 S
[2024-08-01] MEDS: regadenoson 0.4 Mg/5 ml Syringe IVP (10:55)
[2024-08-01 11:14] VITALS: BP 174/88; PULSE 74
== END 2024-08-01 09:19 | disposition home or self-care (01) ==
LOC: CDL 09:19
PROVIDERS: PCP Nurse Practitioner Family; Visit Provider Nurse Practitioner Family
DX: R07.89 Other chest pain (principal); R00.0 Tachycardia, unspecified; I10 Essential (primary) hypertension; R94.39 Abnormal result of other cardiovascular function study; R06.02 Shortness of breath
CPT/HCPCS: 36415; 78452; 93017; 96374; A9500; J2785

== ENCOUNTER 2024-08-04 12:21 | Emergency (ER) | payer MEDICARE, OTHER, SELFPAY ==
[2024-08-04] VITALS (10 sets, daily range): BP systolic 99–199; BP diastolic 58–109; PULSE 61–75; RESP 16–24; TEMP 36.5–36.6; O2SAT 95–99; BMI 23.8
--- NOTE | 2024-08-04 12:51 | ECG_ITS ---
[email or web address] Date: 2024-08-04 Pat Name: Karina Aviles Department: Room: Gender: Female Hat Body Sorter: : 1945 Requested By: Anthony Simon Order Number: [id number] Pamela MD: Jesse Blankenship M.D. Measurements Intervals [place] Rate: 69 P: 75 SD: 177 QRS: 55 QRSD: 82 T: 64 QT: 396 QTc: 427 Interpretive Statements SINUS RHYTHM WITH SINUS ARRHYTHMIA Compared to ECG 06/07/2022 17:30:56 No significant changes Electronically Signed On 08-05-2024 18:32:46 SENIOR CORPORATE STRATEGY MANAGER by Jesse Blankenship M.D. [id number]
--- NOTE | 2024-08-04 13:41 | CT_ITS ---
WS: [id number] CT HEAD NONCONTRAST HISTORY: htn TECHNIQUE: Contiguous axial imaging performed through the brain. Bone and soft tissue windows. Sagitt al and coronal reformats reviewed. All CT scans at [facility] use at least one of these dose optimization techniques: automated exposure control; mA and/or kV adjustment per patient size (includ es targeted exams where dose is matched to clinical indication); or iterative reconstruction. DLP: 931.48 mGy.cm COMPARISON: 06/07/2022 No acute intracranial hemorrhage, midline shift or mass effect. Moderate to severe symmetric atrophy and moderate small vessel ischemic changes. No prior infarct. Mo derate cerebellar atrophy. Ventricles: Ventricles and extra-axial spaces are mildly prominent on the basis of atrophy. Paranasal sinuses: As visualized are clear. Mastoid air cells: Well pneumatized. Calvarium and scalp: Skull is intact with no soft tissue edema or swelling. Advanced atherosclerotic plaque distal carotid arteries. CT/CT head wo con* [id number] IMPRESSION: 1. No acute intracranial hemorrhage or edema. 2. Moderate to severe atrophy with moderate small vessel ischemic disease.
[2024-08-04 13:47] LABS: Basophils # 0.1 10^3/uL (0.0-0.1); Basophils % 0.6 %; Eosinophils # 0.1 10^3/uL (0.0-0.8); Eosinophils % 0.7 %; Hematocrit 42.9 % (36-47); Lymphocytes # 1.5 10^3/uL (0.8-4.8); Lymphocytes % 13.3 %; Mean Corpuscular HGB Conc 31.5 g/dL (30-55); Mean Corpuscular Hemoglobin 27.9 pg (27-33); Mean Corpuscular Volume 88.6 fl (85-98); Mean Platelet Volume 9.5 fL (7.4-10.4); Monocytes # 0.8 10^3/uL (0.2-0.9); Monocytes % 7.3 %; Neutrophils # 8.95 10^3/uL (1.8-7.7); Neutrophils % 77.8 %; Nucleated Red Blood Cells % 0 %; Platelet Count 480 10^3/cmm (157-399); Red Blood Count 4.84 10^6/uL (3.85-5.65); Red Cell Distribution Width 15.5 % (12.1-15.1); White Blood Count 11.51 10^3/uL (3.29-11.43)
[2024-08-04 14:04] LABS: Alanine Aminotransferase 7 U/L (0-33); Alkaline Phosphatase 138 U/L (35-105); Anion Gap 14.8 (5-19); Aspartate Amino Transferase 16 U/L (0-32); Blood Urea Nitrogen 11 mg/dL (8-23); Calcium 9.3 mg/dL (8.5-10.5); Carbon Dioxide 26 mmol/L (22-29); Chloride 103 mmol/L (98-107); Creatinine Clr Calc Pharmacy 47.4998; Globulin 2.6 g/dL (1.3-4.6); Glucose 105 mg/dL (65-115); Osmolality Calculated 290 mOsm/kg (285-295); Potassium 3.8 mmol/L (3.5-5.1); Sodium 140 mmol/L (136-145); Total Bilirubin 0.6 mg/dL (0.15-1.2); Total Protein 6.6 g/dL (6.6-8.7)
[2024-08-04] MEDS: hyDRALAzine 20 mg/mL INJ 1 mL 10 MG IVP (14:25)
--- NOTE | 2024-08-04 14:55 | ED_ITS ---
HPI - Headache 2 General: Chief Complaint: Headache Stated Complaint: abn ab (BP / just had stress test thursday) Time Seen by Provider: 08/04/24 12:51 Source: patient Mode of arrival: ambulatory Limitations: no limitations History of Present Illness: 78-year-old female states that she had a history of high blood pressure states she has been having some hypertension along with a headache over the last 2 to 3 days states that she recently changed her blood pressure medicines currently on lisinopril she denies any fevers denies any chest pain denies any vomiting or diarrhea. Associated symptoms: Deny chest pain, fever(s), nausea, rash or vomiting Related Data Home Medications Medication Instructions Recorded Confirmed aspirin 81 mg tablet,delayed 81 mg PO DAILY 12/10/20 08/04/24 release (Adult Aspirin Regimen) diclofenac sodium 1 % topical gel 4 g topical QID PRN Pain 09/25/22 08/04/24 (Voltaren Arthritis Pain) fluticasone propionate 50 1 spray intranasal BID 05/26/23 08/04/24 mcg/actuation nasal spray,suspension (Allergy Relief (fluticasone)) budesonide 90 mcg/actuation breath 1 inh inhalation BID PRN Shortness 03/17/24 08/04/24 activated powder inhaler Of Breath (Pulmicort Flexhaler) lisinopril 20 mg tablet 20 mg PO DAILY 06/14/24 08/04/24 atorvastatin 10 mg tablet 10 mg PO QPM 08/04/24 08/04/24 lisinopril 10 1 tab PO BID 08/04/24 08/04/24 mg-hydrochlorothiazide 12.5 mg tablet meloxicam 15 mg tablet 15 mg PO .QOD 08/04/24 08/04/24 Previous Rx's Medication Instructions Recorded flecainide 50 mg tablet 50 mg PO Q12H #180 tabs 04/12/24 Allergies Allergy/AdvReac Type Severity Reaction Status Date / Time No Known Allergies Allergy Verified 08/04/24 12:34 Review of Systems 2 Const: Denies: fever(s), chills, body aches or change in appetite Eyes: Denies: blurry vision or eye discomfort ENMT: Denies: throat pain or dental pain Card: Denies: chest pain Resp: Denies: dyspnea GI: Denies: abdominal pain, nausea, vomiting or diarrhea Musc: Denies: neck pain or back pain Skin/Breast: Denies: rash Neuro: Reports: headache(s) All/Imm: Denies: urticaria PFSH ED 2 PFSH: Medical History COPD (chronic obstructive pulmonary disease) PFT 2023 consistent with obstructive disease Hypertension Hyperlipidemia Vitamin D deficiency Osteoporosis IBS (irritable bowel syndrome) Paroxysmal SVT (supraventricular tachycardia) History of gastroesophageal reflux (GERD) History of arthritis Allergic rhinitis due to allergen Acquired deviated nasal septum TMJ arthralgia Surgical History Hx of right knee surgery Hx of dilation and curettage Hx of breast biopsy age 23, benign S/P hysterectomy Family History Father Cancer Mother Cancer Brother No problems noted. Son Atrial fibrillation Other Hypertension Social History Smoking and tobacco/nicotine status: former use of tobacco/nicotine Quit status (tobacco/nicotine): has quit using Year quit tobacco: 1990 Former quit date comment: 3 PPD x 20 years Marital status: / Physical Exam 2 Const: COMMON NORMALS: no acute distress, patient oriented x3 and healthy appearing HENMT: COMMON NORMALS: normocephalic and atraumatic HEAD & SCALP: n ormocephalic and atraumatic Eye: COMMON NORMALS: Equal, round and reactive pupils present and EOMs intact bilaterally PUPIL: Yes Equal, round and reactive pupils present Neck/C-Spine: COMMON NORMALS: full ROM and supple Chest: COMMONS NORMALS: normal inspection of the chest and normal palpation of entire chest wall Resp: COMMON NORMALS: normal respiratory effort, No retractions, No use of accessory muscles and clear to auscultation bilaterally AUSCULTATION: clear to auscultation bilaterally Cardio: COMMON NORMALS: regular rate, regular rhythm and No murmurs present (Cardio) RATE: regular rate RHYTHM: regular rhythm GI: COMMON NORMALS: Normal to inspection, nondistended, normoactive bowel sounds present, Soft to palpation, non-tender and no masses PALPATION: Yes Soft to palpation Extremity: COMMON NORMALS: normal to inspection and full ROM Neuro: COMMON NORMALS: patient oriented x3, moves all extremities and no focal motor deficits Psych: COMMON NORMALS: mental status grossly normal, Normal thought process present and cooperative THOUGHT PROCESS: Normal thought process present Skin: COMMON NORMALS: no rashes or lesions noted and no wounds GENERAL SKIN EXAM: no rashes or lesions noted Course 2 Vital Signs: Vital signs: Vital Signs Temperature 97.9 F 08/04/24 12:59 Pulse Rate 64 08/04/24 16:39 Respiratory Rate 16 08/04/24 16:39 Blood Pressure 155/97 08/04/24 16:39 Pulse Oximetry 99 08/04/24 16:39 Oxygen Delivery Me thod Room Air 08/04/24 16:00 MDM - Headache Medical Decision Making Patient presents here with a headache along with hypertension her blood pressure here is improved her headaches improved as well head CT is normal no signs of subarachnoid hemorrhage patient is stable for discharge follow-up with PCP return if worsening. Medical Records I reviewed the patient's medical records. Lab Data I reviewed the patient's lab results. 08/04/24 13:30 08/04/24 13:[address] 08/04/24 13:41 IMPRESSION: 1. No acute intracranial hemorrhage or edema. 2. Moderate to severe atrophy with moderate small vessel ischemic disease. Laboratory Results WBC 11.51 10^3/uL (3.29-11.43) H 08/04/24 13:30 RBC 4.84 10^6/uL (3.85-5.65) 08/04/24 13:30 Hgb 13.50 g/dL (11.27-16.99) 08/04/24 13:30 Hct 42.9 % (36-47) 08/04/24 13:30 MCV 88.6 fl (85-98) 08/04/24 13:30 MCH 27.9 pg (27-33) 08/04/24 13:30 MCHC 31.5 g/dL (30-55) 08/04/24 13:30 RDW 15.5 % (12.1-15.1) H 08/04/24 13:30 Plt Count 480 10^3/cmm (157-399) H 08/04/24 13:30 MPV 9.5 fL (7.4-10.4) 08/04/24 13:30 Neut % (Auto) 77.8 % 08/04/24 13:30 Lymph % (Auto) 13.3 % 08/04/24 13:30 [place] % (Auto) 7.3 % 08/04/24 13:30 Eos % (Auto) 0.7 % 08/04/24 13:30 Baso % (Auto) 0.6 % 08/04/24 13:30 Neut # (Auto) 8.95 10^3/uL (1.8-7.7) H 08/04/24 13:30 Lymph # (Auto) 1.5 10^3/uL (0.8-4.8) 08/04/24 13:30 [place] # (Auto) 0.8 10^3/uL (0.2-0.9) 08/04/24 13:30 Eos # (Auto) 0.1 10^3/uL (0.0-0.8) 08/04/24 13:30 Baso # (Auto) 0.1 10^3/uL (0.0-0.1) 08/04/24 13:30 Nucleated RBC % (auto) 0 % 08/04/24 13:30 Nucleated RBCs # 0.0 /100WBC 08/04/24 13:30 Sodium 140 mmol/L (136-145) 08/04/24 13:30 Potassium 3.8 mmol/L (3.5-5.1) 08/04/24 13:30 Chloride 103 mmol/L (98-107) 08/04/24 13:30 Carbon Dioxide 26 mmol/L (22-29) 08/04/24 13:30 Anion Gap 14.8 (5-19) 08/04/24 13:30 BUN 11 mg/dL (8-23) 08/04/24 13:30 Creatinine 0.5 mg/dL (0.5-0.9) 08/04/24 13:30 GFR Calculation Not Reportable 08/04/24 13:30 Glucose 105 mg/dL (65-115) 08/04/24 13:30 Calculated Osmolality 290 mOsm/kg (285-295) 08/04/24 13:30 Calcium 9.3 mg/dL (8.5-10.5) 08/04/24 13:30 Total Bilirubin 0.6 mg/dL (0.15-1.2) 08/04/24 13:30 AST 16 U/L (0-32) 08/04/24 13:30 ALT 7 U/L (0-33) 08/04/24 13:30 Alkaline Phosphatase 138 U/L (35-105) H 08/04/24 13:30 Total Protein 6.6 g/dL (6.6-8.7) 08/04/24 13:30 Albumin 4.0 g/dL (3.5-5.2) 08/04/24 13:30 Globulin 2.6 g/dL (1.3-4.6) 08/04/24 13:30 All radiology interpretation(s) finalized by discharge EKG Data EKG 1: I personally reviewed and interpreted this EKG as follows: EKG interpretation date: 08/04/24 EKG interpretation time: 13:20 Interpretation: nsr hr [address] elevation qrs 82 qtc 416 Discharge Plan Discharge Patient Disposition: Home Clinical Impression: Headache, Hypertension Condition: Stable Prescriptions: No Action aspirin [Adult Aspirin Regimen] 81 mg tablet,delayed release (DR/EC) 81 mg PO DAILY Pulmicort Flexhaler 90 mcg/actuation aerosol powdr breath activated 1 inh inhalation BID PRN (Reason: Shortness Of Breath) fluticasone propionate [Allergy Relief (fluticasone)] 50 mcg/actuation spray,suspension 1 spray intranasal BID Rx Instructions: administer into each nostril diclofenac sodium [Voltaren Arthritis Pain] 1 % gel 4 g topical QID PRN (Reason: Pain) flecainide 50 mg tablet 50 mg PO Q12H Qty: 180 3RF lisinopril 20 mg tablet 20 mg PO DAILY lisinopril-hydrochlorothiazide 10-12.5 mg Tablet 1 tab PO BID atorvastatin 10 mg tablet 10 mg PO QPM meloxicam 15 mg tablet 15 mg PO .QOD Discharge Orders: Discharge ED (Routine); Ordered 08/04/24 Ordered By: Anthony Simon Referrals: Candace Cifuentes FNP [Primary Care Provider] - Discharge Diet: Advance as tolerated Discharge Activity: Resume usual activity Patient Instructions: Hypertension (ED), General Headache (ED) Coding Level of Care Code ED Director Fixed Income for Chg Erin
[2024-08-04] MEDS: sodium chloride 0.9% 1,000 ML 999 ML IV (15:41)
== END 2024-08-04 16:40 | disposition home or self-care (01) ==
PROVIDERS: Emergency Provider Emergency Medicine; PCP Nurse Practitioner Family
DX: R51.9 Headache, unspecified (principal); I10 Essential (primary) hypertension; Z79.82 Long term (current) use of aspirin; Z87.891 Personal history of nicotine dependence; E78.5 Hyperlipidemia, unspecified; J44.9 Chronic obstructive pulmonary disease, unspecified
CPT/HCPCS: 36415; 70450; 80053; 85025; 93005; 96374; 99285; J0360; J7030

== ENCOUNTER → 2024-08-11 13:50 | Outpatient (BNVA) | payer OTHER, MEDICARE, SELFPAY | PROVIDERS: PCP Nurse Practitioner Family; Visit Provider Internal Medicine | DX: R07.89 Other chest pain (principal); I10 Essential (primary) hypertension; E78.5 Hyperlipidemia, unspecified; J41.0 Simple chronic bronchitis; I47.10 Supraventricular tachycardia, unspecified; Z87.891 Personal history of nicotine dependence | CPT/HCPCS: 99214 ==

== ENCOUNTER 2024-08-15 12:53 | Outpatient (CLI) | payer MEDICARE, OTHER, SELFPAY ==
[2024-08-15 13:14] LABS: Basophils % 0.4 %; Eosinophils % 0.3 %; Hematocrit 43.5 % (36-47); Lymphocytes # 1.6 10^3/uL (0.8-4.8); Lymphocytes % 15.5 %; Mean Corpuscular HGB Conc 31.5 g/dL (30-55); Mean Corpuscular Hemoglobin 27.4 pg (27-33); Mean Platelet Volume 9.3 fL (7.4-10.4); Monocytes # 1.1 10^3/uL (0.2-0.9); Monocytes % 10.4 %; Neutrophils % 73.2 %; Nucleated Red Blood Cells % 0 %; Platelet Count 469 10^3/cmm (157-399); Red Cell Distribution Width 15.5 % (12.1-15.1); White Blood Count 10.24 10^3/uL (3.29-11.43)
[2024-08-15 13:26] LABS: INR 0.94 (0.83-1.21); Prothrombin Time (Patient) 13.2 Seconds (12.0-15.1)
[2024-08-15 13:30] LABS: Anion Gap 11.7 (5-19); Blood Urea Nitrogen 18 mg/dL (8-23); Calcium 9.1 mg/dL (8.5-10.5); Carbon Dioxide 27 mmol/L (22-29); Chloride 104 mmol/L (98-107); Glucose 99 mg/dL (65-115); Osmolality Calculated 290 mOsm/kg (285-295); Potassium 3.7 mmol/L (3.5-5.1); Sodium 139 mmol/L (136-145)
== END 2024-08-15 12:54 | disposition home or self-care (01) ==
LOC: LAB 12:57
PROVIDERS: PCP Nurse Practitioner Family; Visit Provider Internal Medicine
DX: I10 Essential (primary) hypertension (principal); R58 Hemorrhage, not elsewhere classified; R07.9 Chest pain, unspecified
CPT/HCPCS: 36415; 80048; 85025; 85610

== ENCOUNTER 2024-08-19 08:46 | Observation (INO) | payer MEDICARE, OTHER, SELFPAY ==
[2024-08-19] VITALS (35 sets, daily range): BP systolic 110–193; BP diastolic 50–112; PULSE 59–80; RESP 15–24; TEMP 36.4–36.7; O2SAT 93–99; BMI 24.1
--- NOTE | 2024-08-19 06:00 | XACV_ITS ---
Exam Room: 2 Ht: 157 cm Wt: 60 kg BSA: 1.63 m2 Gender: Female : 1945 Any Known Allergies: No known allergies Exam Priority: Routine Procedure(s): Procedure Description: Diagnostic procedure Procedure Description: PCI procedure Procedure Description: Drug Eluting Coronary Stent Procedure Description: PTCA Procedure Description: Miscellaneous Procedure Description: ACT Procedure Description: Coronary Angiography Procedure Description: Pressure Wire Diagnostic Cath Status: Elective Diagnostic Findings * INDICATION: Chest pain, CCS 2-3 angina/abnormal stress test. * Left Main has no significant disease. * Circumflex has luminal irregularities. * Mid Left Anterior Descending: obstructive 60% stenosis, ROSA: 3 flow. * Proximal Right Coronary Artery: minimal 30% stenosis, ROSA: 3 flow. * Coronary angiography shows right dominance. PCI Status: Elective Interventional Findings * Procedure detail: We engaged left main artery with XB guide catheter. IV heparin was administered to maintain anticoagulation. After normalization, IFR wire was advanced into distal LAD. iFR value of 0.89 was obtained that was ischemic. We then proceeded with PCI of mid LAD. Run-through wire was used to cross the stenosis. We predilated the stenosis with 2.25 x 20 mm semicompliant balloon. This was followed by placement of 2.5 x 30 mm resolute [place] drug-eluting stent. The stent was postdilated with 2.75 x 12 mm NC balloon. At this time final angiogram was performed that showed excellent stent expansion, no residual stenosis and ROSA 3 flow. Guidewire and guide catheter were removed. 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 * Mid Left Anterior Descendin% stenosis treated with a AB TREK 2.25X20 RX BALLOON, JESSICA R DEQUAN 2.5X30 PAULA, and JESSICA BAIRES EUPHORA RX [id number] BALLOON. 0% residual stenosis, ROSA: 3 flow. Conclusions 1. Severe mid LAD stenosis confirmed with IFR value of 0.89. Status post successful revascularization with 1 stent.. 2. Mid Left Anterior Descending was treated with a Balloon, Drug Eluting Stent, and Balloon. Recommendations * Dual antiplatelet therapy with aspirin and plavix. * Statin therapy. * Outpatient cardiology follow up in 2 weeks. Pressures Phase:Rest AO : 97 / 58 ( 74 ) @ 8:01:00 AM 94 / 62 ( 77 ) @ 8:04:00 AM 131 / 60 ( 87 ) @ 8:16:00 AM Clinical Evaluation EBL: 5mL-10mL Procedural Details Procedure Consent Obtained. Pre-Procedure Time Out. Identified patient by full name and date of as verbalized by the patient/guarantor. Does the consent match the physician's order: Yes. Accurate & Complete Informed Consent: Yes. Inpatient/Outpatient History & Physical on Chart: Yes. If H&P is completed, is and addenduem needed: No. Visualize and Verify Site with Patient/Guarantor: N/A. Relevant Radiology Images available: Yes. The risks, benefits, and alternatives of sedation and/or procedure were discussed by physician. The patient agrees to continue. Procedure started. [facility] Clinical Fraility Score: 3: Managing Well. Furniture Sander Indications: New Onset Angina/Abnormal stress test. Chest Pain Symptom Assessment: Typical Angina Symptoms. Cardiovascular Instability: No. Correct patient, site and procedure confirmed by cath team. PERRLA. Strong, equal hand personal banking representative bilaterally. Lungs clear x 5 lobes. IV Site on Arrival: 20 gauge in the left anticubital. IV Fluids: 0.9% NaCl at KVO. 0 mL infused prior to car barn laborer. Pre Procedural Pulses: bilateral dorsalis pedis was 2+. Pre Procedural Pulses: bilateral posterior tibial was 1+. Pre Procedural Pulses: bilateral radial was 3+. Oxygen started at 2liters/min via nasal canula. right groin was prepped with chloroprep then draped in the usual sterile fashion. right radial was prepped with chloroprep then draped in the usual sterile fashion. Physician notified. Baseline sample Acquired. HR: 84 BPM. Patient's family in CPRU room #3. Dr. Blankenship will update at the completion of the procedure. Equipment: 6F - Radial. Cardiac Cath Pack. ACIST Manifold Kit Model BT 2000. Heparinized Saline (2 units/mL), 1000 mL bag. Physician arrived. Physician scrubbed in. Immediate Pre-Procedure Time Out. Correct Patient: Yes; Correct Procedure: Yes; Correct Site: Yes; Correct Patient Position: Yes; Correct Supplies: Yes; Dried Flammable Prep: Yes; Blood Products Available: N/A;. Lidocaine 1% infiltrated to the right radial. Arterial access obtained. A 5 divehi TIG catheter in over the exchange J wire. Multiple views taken of left coronary artery. Catheter redirected to the RCA. Multiple views taken of right coronary artery. Catheter removed over the exchange wire. 6 divehi XB 3 guide catheter was inserted over the exchange J wire. iFR guidewire was advanced through the guide catheter to lesion in the mid LAD. iFR of the Mid LAD = 0.89. Runthrough guidewire was advanced through the guide catheter to lesion in the mid LAD. iFR wire out. Inflation number : 1 A AB TREK 2.25X20 RX BALLOON was prepped and advanced across the Mid LAD , then inflated to 8 LIN for 0:09 seconds. Inflation number: 2 The AB TREK 2.25X20 RX BALLOON was reinflated across the Mid LAD, to 8 LIN for 0:12 seconds. Inflation number: 3 The AB TREK 2.25X20 RX BALLOON was reinflated across the Mid LAD, to 10 LIN for 0:18 seconds. Balloon out. Dequan 2.5 x 30 stent in, unable to cross. Removed intact. Guideliner in OTW. Inflation Number : 4 A JESSICA R DEQUAN 2.5X30 PAULA -Lot Number# [id number] was prepped and advanced across the Mid LAD. The stent was deployed at 12 LIN for 0:21 seconds. Exp. . Stent balloon out over wire. Results checked. Inflation number : 5 A MDT NC EUPHORA RX [id number] BALLOON was prepped and advanced across the Mid LAD , then inflated to 14 LIN for 0:15 seconds. Inflation number: 6 The MDT NC EUPHORA RX [id number] BALLOON was reinflated across the Mid LAD, to 14 LIN for 0:09 seconds. Balloon out. Results checked. Wire out. ACT drawn. Results out of range HI. Guide catheter out over the exchange J wire. Dr. Blankenship scrubbed out. A TR Band was unsuccessful obtaining hemostatsis at the Right Radial artery insertion site. Post Procedure: Pulses reassessed and unchanged. PERRLA. Strong, equal hand personal banking representative bilaterally. No VTE prophylaxis required. Medication's Wasted: Lidocaine 1% = 18 mL. Medication's Wasted: Nitro = 49.8 mg. Medication's Wasted: Heparin = 1000 units. Medication's Wasted: Other = Fentanyl 50 mcg. Total IV fluids: 75 mL. PCI Indication: CAD (without ischemic symptoms). Post-op diagnosis: iFR of Mid LAD S/P PCI with one PAULA. Complications: none. Estimated blood loss: 5mL-10mL. Responsiveness - Normal response to verbal stimuli; alert and oriented, PERRLA. Airway - Unaffected, no intervention required; spontaneous ventilation. Circulation: W/N/L, pulses unchanged. Nausea/Vomiting: No. Procedure completed. Patient transferred by wheelchair to CPRU. Vital chart was stopped. Access Site Site: Right Radial artery Sheath Size: 6 Fr Hemostasis Method: TR Band Hemostasis Success: Unsuccessful Procedure Medications Start: 7:50 AM Stop: 7:50 AM Medication: Versed Amount: 1 mg Route: I.V. Start: 7:50 AM Stop: 7:50 AM Medication: Fentanyl Amount: 50 mcg Route: I.V. Start: 7:58 AM Stop: 7:58 AM Medication: Versed Amount: 1 mg Route: I.V. Start: 7:59 AM Stop: 7:59 AM Medication: Nitrogylcerin Amount: 200 mcg Route: I.A. Start: 8:00 AM Stop: 8:00 AM Medication: Heparin Amount: 5000 units Route: I.V. Start: 8:16 AM Stop: 8:16 AM Medication: Heparin Amount: 1000 units Route: I.V. Start: 8:40 AM Stop: 8:40 AM Medication: Plavix Amount: 600 mg Route: P.O. I, the attending physician, have reviewed and verified all procedure medications. Yes, all medications given per verbal order History/Risk Factors Hypertension: Yes Dyslipidemia: Yes Peripheral Arterial Disease (PAD): No Myocardial Infarction (HI): No Obesity: No Renal Disease: No Tobacco Use: Former Prior Interventions PCI: No CABG: No Valve Surgery: No Report Signatures Finalized by Jesse Blankenship MD on 08/19/2024 11:38 AM
[2024-08-19] MEDS: diphenhydrAMINE 50 mg Capsule PO (06:30)
--- NOTE | 2024-08-19 07:40 | P.HPUD_ITS ---
Surgery/Procedure H&P Update DATE OF PROCEDURE: August 19, 2024 DATE H&P PERFORMED: 08/11/24 H&P UPDATE INFORMATION: I have reviewed H&P completed within last 30 days, I have examined patient prior to procedure and No changes to prior documentation PREOP DIAGNOSIS: CCS Class2-3 angina/ abnormal stress test PRIMARY INDICATION FOR PROCEDURE: CCS Class2-3 angina/ abnormal stress test PLANNED PROCEDURE: Operation Date: 08/19/24 08:30 Proposed Procedures p Cardiac Catheterization - [facility] w/wo LV & Coros(Left) - Jesse Blankenship M.D Possible percutaneous coronary intervention PATIENT REASSESSED PRIOR TO SEDATION, WITH NO CHANGE NOTED: Yes PHYSICAL EXAM: alert, oriented x 3, clear to auscultation bilaterally and regular rate & rhythm AIRWAY EVAL/ANESTHESIA PLAN: normal airway, ASA III, Local Anesthesia, Risks, benefits & alternatives of sedation and/or procedure discussed and Patient agrees to continue as planned ADDITIONAL INFORMATION: Moderate sedation
--- NOTE | 2024-08-19 09:06 | P.PCN_ITS ---
Procedure Note: Date of procedure: 08/19/24 Pre-procedure diagnosis: CCS 2/3 angina/ abnormal stress test Post-procedure diagnosis: other (Severe mid LAD stenosis (confirmed with iFR) S/P PCI with 1 stent) Procedure: Left heart cath/ PCI: Left main artery is patent. LAD has mid vessel 60-70%. iFR is significant at 0.89. S/p PCI with 1 stent. Left circumflex artery is patent. RCA has proximal vessel 30% stenosis. Dual antiplatelet therapy with aspirin and plavix Statin therapy Performing Provider: Jesse Blankenship Estimated blood loss (mL): 10 Complications: None Condition: stable Disposition: floor Coding Level of Care Code Acute Code for [facility] Fwd
[2024-08-19] MEDS: acetaminophen 325 mg Tablet 650 MG PO (10:17)
[2024-08-19] MEDS: sodium chloride 0.9% 1,000 ML 100 ML IV (10:18)
[2024-08-19] MEDS: amlodipine 10 mg Tablet PO (10:55)
[2024-08-19] MEDS: hyDRALAzine 20 mg/mL INJ 1 mL 10 MG IVP (12:24)
--- NOTE | 2024-08-19 12:44 | P.DS_ITS ---
Discharge Providers Date of Admission: 08/19/24 08:46 Date of Discharge: August 19, 2024 Attending Provider at Admission: Jesse Blankenship M.D Attending Provider at Discharge: Jesse Blankenship M.D Primary Care Provider: ADELE Carrington Reason for Visit Reason for Visit: R07.9 Brief History: 79 year old woman who was having episode s of chest pain that was worsening. Stress test was abnormal. Plan for coronary angiogram Hospital Course Hospital Course Coronary angiogram showed moderate to severe mid LAD stenosis s/p iFR that is abnormal. She underwent successful revascularization with 1 stent. Patient was observed for 8 hours and stayed stable. No symptoms or access site complications. Patient was discharged home on dual antiplatelet therapy with aspirin and plavix. Was also started on amlodipine as was having elevated blood pressure readings. Physical Exam Const: COMMON NORMALS: patient oriented x3 and alert Resp: COMMON NORMALS: clear to auscultation bilaterally AUSCULTATION: clear to auscultation bilaterally Cardio: COMMON NORMALS: regular rate, regular rhythm, S1 normal heart sound present, S2 normal heart sound present and No murmurs present (Cardio) RATE: regular rate RHYTHM: regular rhythm HEART SOUNDS: S1 normal heart sound present and S2 normal heart sound present Neuro: COMMON NORMALS: patient oriented x3 SENSORIUM/ORIENTATION: Yes alert Discharge Data Studies Completed and Pending Completed Studies During Hospitalization Category Date Time Status SUPERVISOR TYPE DISK QUALITY CONTROL request for service Routine Exams 08/19/24 06:00 Completed Vitals Last Vital Signs Temp 98.0 F 08/19/24 11:45 Pulse 74 08/19/24 12:15 Resp 16 08/19/24 11:45 BP 177/84 08/19/24 12:15 Pulse Ox 97 08/19/24 11:45 O2 Del Method Room Air 08/19/24 11:45 Discharge Plan Discharge Patient Disposition: Home Condition: Stable Prescriptions: New amlodipine 10 mg Tablet 10 mg PO DAILY Qty: 90 3RF clopidogrel 75 mg tablet 75 mg PO DAILY Qty: 90 3RF Continued aspirin [Adult Aspirin Regimen] 81 mg tablet,delayed release (DR/EC) 81 mg PO DAILY fluticasone propionate [Allergy Relief (fluticasone)] 50 mcg/actuation spray,suspension 1 spray intranasal BID Rx Instructions: administer into each nostril diclofenac sodium [Voltaren Arthritis Pain] 1 % gel 4 g topical QID PRN (Reason: Pain) lisinopril 20 mg tablet 20 mg PO BID flecainide 50 mg tablet 50 mg PO Q12H Qty: 180 3RF meloxicam 15 mg tablet 15 mg PO .QOD Spiriva Respimat 2.5 mcg/actuation Mist 2 puff INHALATION BID Changed atorvastatin 10 mg tablet 20 mg PO QPM Qty: 90 0RF Discharge Orders: Discharge Order (Routine); Ordered 08/19/24 Ordered By: Jesse Blankenship Referrals: Nichol Oneill FNP [Nurse Practitioner] - 08/30/24 3:30 pm Discharge Diet: Cardiac Discharge Activity: Increase activity as tolerated Patient Instructions: Amlodipine (By mouth), Clopidogrel (By mouth) (Plavix), Hypertension, Coronary Angioplasty (DC), Coronary Intravascular Stent Placement (DC), Opioid Safety, Post Angiogram Home Care Instructions Activity Restrictions/Additional Instructions: Please check your BP twice a day at home. Keep a log and record them to bring with you during your follow up appointments with your pcp and insurance advisor. Activity restrictions such as no lifting of more than 5lbs to your Right arm the next 5 days. Discharge Attestations Time Spent in Discharge Care*: less than 30 min Quality Metrics Clinical Quality Measures [ No reported AMI, CVA or VTE this stay] Coding Level of Care Code Acute Code for [facility]
== END 2024-08-19 18:01 | disposition home or self-care (01) ==
LOC: CSU 08:47
PROVIDERS: Admitting Provider Internal Medicine; PCP Nurse Practitioner Family; Visit Provider Internal Medicine
DX: I25.10 Atherosclerotic heart disease of native coronary artery without angina pectoris (principal); I10 Essential (primary) hypertension; E78.5 Hyperlipidemia, unspecified; Z87.891 Personal history of nicotine dependence; Z79.82 Long term (current) use of aspirin; J41.0 Simple chronic bronchitis; I47.10 Supraventricular tachycardia, unspecified
CPT/HCPCS: 36415; 85347; 93454; 93571; 96365; 96374; 99152; 99153; C1725; C1769; C1874; C1887; C1894; C9600; G0378; J0360; J1644; J2250; J3010; J3490; J7030; Q0163; Q9967

== ENCOUNTER → 2024-08-30 15:10 | Outpatient (BNVA) | payer MEDICARE, OTHER, SELFPAY | PROVIDERS: PCP Nurse Practitioner Family; Visit Provider Nurse Practitioner Family | DX: R07.9 Chest pain, unspecified (principal); I10 Essential (primary) hypertension; E78.5 Hyperlipidemia, unspecified; J41.0 Simple chronic bronchitis; Z87.891 Personal history of nicotine dependence | CPT/HCPCS: 99213 ==

== ENCOUNTER 2024-08-31 09:10 | Outpatient (CLI) | payer MEDICARE, OTHER, SELFPAY ==
[2024-08-31 09:26] LABS: Basophils # 0.1 10^3/uL (0.0-0.1); Basophils % 0.7 %; Eosinophils # 0.2 10^3/uL (0.0-0.8); Eosinophils % 1.6 %; Hematocrit 44.7 % (36-47); Lymphocytes # 2.2 10^3/uL (0.8-4.8); Lymphocytes % 21.9 %; Mean Corpuscular HGB Conc 30.9 g/dL (30-55); Mean Corpuscular Hemoglobin 27.1 pg (27-33); Mean Corpuscular Volume 87.6 fl (85-98); Mean Platelet Volume 9.1 fL (7.4-10.4); Monocytes # 0.8 10^3/uL (0.2-0.9); Monocytes % 8.2 %; Neutrophils # 6.66 10^3/uL (1.8-7.7); Neutrophils % 67.4 %; Nucleated Red Blood Cells % 0 %; Platelet Count 593 10^3/cmm (157-399); White Blood Count 9.88 10^3/uL (3.29-11.43)
[2024-08-31 09:45] LABS: Alanine Aminotransferase < 5 U/L (0-33); Albumin Level 4.1 g/dL (3.5-5.2); Alkaline Phosphatase 130 U/L (35-105); Anion Gap 15.1 (5-19); Aspartate Amino Transferase 12 U/L (0-32); Blood Urea Nitrogen 19 mg/dL (8-23); Calcium 9.1 mg/dL (8.5-10.5); Carbon Dioxide 26 mmol/L (22-29); Chloride 102 mmol/L (98-107); Chol HDL Ratio 2.78 mg/dL (0.0-4.40); Cholesterol 142 mg/dL (0-200); Globulin 2.6 g/dL (1.3-4.6); Glucose 141 mg/dL (65-115); HDL Cholesterol 51 mg/dL (60-100); LDL Cholesterol Calculated 58 mg/dL (50-129); LDL HDL Ratio 1.14 RATIO (0.00-3.22); Osmolality Calculated 293 mOsm/kg (285-295); Potassium 4.1 mmol/L (3.5-5.1); Sodium 139 mmol/L (136-145); Total Bilirubin 0.5 mg/dL (0.15-1.2); Total Protein 6.7 g/dL (6.6-8.7); Triglycerides 165 mg/dL (0-150)
== END 2024-08-31 09:11 | disposition home or self-care (01) ==
LOC: LAB 09:13
PROVIDERS: PCP Nurse Practitioner Family; Visit Provider Nurse Practitioner Family
DX: I10 Essential (primary) hypertension (principal); E78.5 Hyperlipidemia, unspecified
CPT/HCPCS: 36415; 80053; 80061; 85025

== ENCOUNTER 2024-10-24 10:15 | Outpatient (CLI) | payer MEDICARE, OTHER, SELFPAY ==
--- NOTE | 2024-10-24 | MM_ITS ---
WS: [id number] BILATERAL SCREENING DIGITAL TOMOSYNTHESIS MAMMOGRAM WITH CAD HISTORY: ANNUAL SCREENING COMPARISON: 10/22/2023, 10/16/2022, 09/07/2020 Bilateral CC and MLO views with tomosynthesis and synthetic mammography submitted. Computer aided detection analyzed. Breast composition: There are scattered areas of fibroglandular density. No suspicious masses, microcalcifications or architectural distortion. Numerous round and rodlike calcifications scattered throughout each breast. No suspicious grouping of calcifications. Bilateral breast masses are reidentified and stable. MM/MM [facility] tomosynthesis [id number] IMPRESSION: BI-RADS: 2 - Benign. FOLLOW UP: 1 Year Follow-up
== END 2024-10-24 10:16 | disposition home or self-care (01) ==
PROVIDERS: PCP Nurse Practitioner Family; Visit Provider Nurse Practitioner Family
DX: Z12.31 Encounter for screening mammogram for malignant neoplasm of breast (principal); R92.323 Mammographic fibroglandular density, bilateral breasts; R92.1 Mammographic calcification found on diagnostic imaging of breast; N63.20 Unspecified lump in the left breast, unspecified quadrant; N63.10 Unspecified lump in the right breast, unspecified quadrant
CPT/HCPCS: 77063; 77067

== ENCOUNTER → 2024-12-13 15:04 | Outpatient (BNVA) | payer MEDICARE, OTHER, SELFPAY | PROVIDERS: PCP Nurse Practitioner Family; Visit Provider Internal Medicine | DX: R07.9 Chest pain, unspecified (principal); I10 Essential (primary) hypertension; I25.10 Atherosclerotic heart disease of native coronary artery without angina pectoris; Z87.891 Personal history of nicotine dependence | CPT/HCPCS: 99214 ==

== ENCOUNTER 2025-01-17 13:27 | Emergency (ER) | payer MEDICARE, OTHER, SELFPAY ==
[2025-01-17 13:32] VITALS: BP 109/55; PULSE 78; RESP 17; TEMP 36.4; O2SAT 97; BMI 23.6
--- NOTE | 2025-01-17 13:37 | ECG_ITS ---
[facility]25[facility]17 Pat Name: Karina Aviles Department: Room: Gender: Female Lead Sustainability Specialist: : 1945 Requested By: Mau Ackerman Order Number: [id number] Pamela MD: Ellie Cuba M.D. Measurements Intervals [place] Rate: 77 P: 77 MA: 173 QRS: 96 QRSD: 96 T: 79 QT: 373 QTc: 424 Interpretive Statements SINUS RHYTHM BORDERLINE RIGHT AXIS DEVIATION [QRS AXIS > 90] Compared to ECG 08/04/2024 13:20:35 Sinus arrhythmia no longer present Electronically Signed On 01-18-2025 22:04:24 CDT by Ellie Cuba M.D. [email or web address]
[2025-01-17 14:26] VITALS: BP 116/70; BP 123/71; BP 127/78; PULSE 67; PULSE 70; PULSE 72
--- NOTE | 2025-01-17 14:29 | ED_ITS ---
HPI - General Adult 2 General: Chief complaint: General Medical Stated complaint: sob Time Seen by Provider: 01/17/25 13:41 History of Present Illness: Chief complaint is episode of fast heartbeat feeling flushed and lightheaded. The patient states that at about 1:00 this afternoon she was doing some light activity standing up. She states she was not exerting herself. She states she started feeling some lightheadedness and felt hot and flushed in her face and felt like her heart was racing. She ran up the steps to go check her blood pressure and her blood pressure was in the 90s which was low for her. She states that she recently was started on hydrochlorothiazide about a month ago and was told to watch her blood pressure. She is also had multiple of these episodes and had a heart monitor for about a month and she states she had multiple episodes while she was on the heart monitor. She has been following with cardiology for this. 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 Related Data Home Medications ?Medication ?Instructions ?Recorded ?Confirmed aspirin 81 mg tablet,delayed 81 mg PO DAILY 12/10/20 0 12/13/24 release (Adult Aspirin Regimen) diclofenac sodium 1 % topical gel 4 g topical QID PRN Pain 09/25/22 12/13/24 (Voltaren Arthritis Pain) fluticasone propionate 50 1 spray intranasal BID 05/2612/13/24 mcg/actuation nasal spray,suspension (Allergy Relief (fluticasone)) meloxicam 15 mg tablet 15 mg PO .QOD 08/04/2412/13 tiotropium bromide 2.5 2 puff inhalation BID 12/13/24 mcg/actuation mist for inhalation (Spiriva Respimat) Previous Rx's ?Medication ?Instructions ?Recorded flecainide 50 mg tablet 50 mg PO Q12H #180 tabs 10/31 clopidogrel 75 mg tablet 75 mg PO DAILY #90 tabs 08/11 09/03 lisinopril 20 mg tablet 20 mg PO BID #90 tabs atorvastatin 20 mg tablet 40 mg (2 x 20 mg) PO ONCE #1 80 tabs 12/05/24 hydrochlorothiazide 12.5 mg tablet 12.5 mg PO DAILY #9 0 tabs 12/13/24 Allergies Allergy/AdvReac Type Severity Reaction Status Date / Time No Known Allergies Allergy Verified 12/13/24 16:05 [facility] ED 2 PFSH: Medical History COPD (chronic obstructive pulmonary disease) PFT 2023 consistent with obstructive disease Hypertension Hyperlipidemia Vitamin D deficiency Osteoporosis IBS (irritable bowel syndrome) Paroxysmal SVT (supraventricular tachycardia) History of gastroesophageal reflux (GERD) History of arthritis Allergic rhinitis due to allergen Acquired deviated nasal septum TMJ arthralgia Surgical History Hx of right knee surgery Hx of dilation and curettage Hx of breast biopsy age 23, benign S/P hysterectomy Family History Father Cancer Mother Cancer Brother No problems noted. Son Atrial fibrillation Other Hypertension Social History Smoking and tobacco/nicotine status: former use of tobacco/nicotine Quit status (tobacco/nicotine): has quit using Year quit tobacco: 1990 Former quit date comment: 3 PPD x 20 years Marital status: / Physical Exam 2 Narrative: EXAM NARRATIVE: Patient is alert oriented talkative no acute distress. She is reading and relaxing back in the bed. Her neck is supple. Normal conjunctive. Neck is supple. Heart regular rate and rhythm with no rubs or murmurs. Lung sounds are clear. Abdomen soft nontender. Extremities warm well-perfused. No calf tenderness or pitting edema. Clear speech. Normal cerebellar function. No truncal ataxia. No rash on exposed areas. Skin is warm dry and normal coloration. Course 2 Vital Signs: Vital signs: Vital Signs Temperature 97.6 F 01/17/25 13:32 Pulse Rate 78 01/17/25 13:32 Respiratory Rate 17 01/17/25 13:32 Blood Pressure 109/55 01/17/25 13:32 Pulse Oximetry 97 01/17/25 13:32 Oxygen Delivery Me thod Room Air 01/17/25 13:32 MDM - General Adult Medical Decision Making Patient presents complaining of episode of palpitations where she folic her heart was racing she felt hot flushed and lightheaded. She states she has had multiple of these episodes for several months and had a heart monitor for a month but they did not find any significant abnormality that she is aware of. She states she had multiple episodes while she had the monitor on. She did not pass out. She states that her registered nurse cardiac telemetry has told her to come get checked out if she has these episodes. She states that lasted for about 10 minutes and then was still a little bit there for about 30 minutes and then resolved. She states she is not having any of those symptoms currently. She did have her hydrochlorothiazide added and another blood pressure medication stopped about a month ago. She denies any black or bloody stools. No fever. No recent illness. No hemoptysis or recent immobility or leg pain or swelling to suggest a PE. Cardiac dysrhythmia, vasovagal episode, pheochromocytoma, very broad differential. EKG ordered which shows sinus rhythm with a rate of [address] segment changes to my interpretation. I ordered CBC CMP troponin and will monitor here in the emergency department. She is already asking if she can go home. She states she does not want to be in the hospital and she feels fine to go home right now and is asking if she can go. I explained to her at length reasoning for doing some labs and advised her with her hydrochlorothiazide I would like to at least check her potassium and creatinine. I did order 500 cc normal saline IV fluid bolus. Acute NE is less likely by history. She states she had no discomfort in her chest or upper back or symptoms to suggest PE NE or dissection. Patient remains asymptomatic. She remains in sinus rhythm on the monitor. I had her stand up she had no lightheadedness or dizziness and her blood pressure went up appropriately. I discussed doing a delta troponin and if any question of cardiac ischemia. She states that she has had multiple of these episodes and she states she had no chest pain no chest discomfort and she declines further testing or evaluation and is asking for discharge home. She states she feels completely fine. I advised her to reduce her hydrochlorothiazide to half a dose for now and monitor her blood pressure and to come back if new or worsening symptoms and close follow-up on her test results and for further evaluation with her doctor. Advised activity restrictions and return precautions. Patient capable and informed and requesting continued outpatient management Lab Data 01/17/25 13:52 01/17/25 13:52 Laboratory Results WBC 10.60 10^3/uL (3.29-11.43) 01/17/25 13:52 RBC 4.49 10^6/uL (3.85-5.65) 01/17/25 13:52 Hgb 13.00 g/dL (11.27-16.99) 01/17/25 13:52 Hct 40.1 % (36-47) 01/17/25 13:52 MCV 89.3 fl (85-98) 01/17/25 13:52 MCH 29.0 pg (27-33) 01/17/25 13:52 MCHC 32.4 g/dL (30-55) 01/17/25 13:52 RDW 14.6 % (12.1-15.1) 01/17/25 13:52 Plt Count 440 10^3/cmm (157-399) H 01/17/25 13:52 MPV 9.3 fL (7.4-10.4) 01/17/25 13:52 Neut % (Auto) 77.7 % 01/17/25 13:52 Lymph % (Auto) 14.0 % 01/17/25 13:52 Smith % (Auto) 6.0 % 01/17/25 13:52 Eos % (Auto) 1.4 % 01/17/25 13:52 Baso % (Auto) 0.5 % 01/17/25 13:52 Neut # (Auto) 8.24 10^3/uL (1.8-7.7) H 01/17/25 13:52 Lymph # (Auto) 1.5 10^3/uL (0.8-4.8) 01/17/25 13:52 Smith # (Auto) 0.6 10^3/uL (0.2-0.9) 01/17/25 13:52 Eos # (Auto) 0.2 10^3/uL (0.0-0.8) 01/17/25 13:52 Baso # (Auto) 0.1 10^3/uL (0.0-0.1) 01/17/25 13:52 Nucleated RBC % (auto) 0 % 01/17/25 13:52 Nucleated RBCs # 0.0 /100WBC 01/17/25 13:52 Sodium 139 mmol/L (136-145) 01/17/25 13:52 Potassium 3.8 mmol/L (3.5-5.1) 01/17/25 13:52 Chloride 102 mmol/L (98-107) 01/17/25 13:52 Carbon Dioxide 24 mmol/L (22-29) 01/17/25 13:52 Anion Gap 16.8 (5-19) 01/17/25 13:52 BUN 24 mg/dL (8-23) H 01/17/25 13:52 Creatinine 0.7 mg/dL (0.5-0.9) 01/17/25 13:52 GFR Calculation Not Reportable 01/17/25 13:52 Glucose 149 mg/dL (65-115) H 01/17/25 13:52 Calculated Osmolality 295 mOsm/kg (285-295) 01/17/25 13:52 Calcium 8.9 mg/dL (8.5-10.5) 01/17/25 13:52 Total Bilirubin 0.6 mg/dL (0.15-1.2) 01/17/25 13:52 AST 11 U/L (0-32) 01/17/25 13:52 ALT 8 U/L (0-33) 01/17/25 13:52 Alkaline Phosphatase 135 U/L (35-105) H 01/17/25 13:52 Troponin T Baseline 7 ng/L (0-10) 01/17/25 13:52 Total Protein 6.2 g/dL (6.6-8.7) L 01/17/25 13:52 Albumin 4.1 g/dL (3.5-5.2) 01/17/25 13:52 Globulin 2.1 g/dL (1.3-4.6) 01/17/25 13:52 No radiology studies performed this visit Discharge Plan Discharge Patient Disposition: Home Clinical Impression: Palpitations, Episodic lightheadedness Condition: Stable Prescriptions: No Action aspirin [Adult Aspirin Regimen] 81 mg tablet,delayed release (DR/EC) 81 mg PO DAILY fluticasone propionate [Allergy Relief (fluticasone)] 50 mcg/actuation spray,suspension 1 spray intranasal BID Rx Instructions: administer into each nostril hydrochlorothiazide 12.5 mg tablet 12.5 mg PO DAILY Qty: 90 3RF clopidogrel 75 mg tablet 75 mg PO DAILY Qty: 90 3RF lisinopril 20 mg tablet 20 mg PO BID Qty: 90 3RF diclofenac sodium [Voltaren Arthritis Pain] 1 % gel 4 g topical QID PRN (Reason: Pain) flecainide 50 mg tablet 50 mg PO Q12H Qty: 180 3RF atorvastatin 20 mg tablet 40 mg PO ONCE Qty: 180 3RF meloxicam 15 mg tablet 15 mg PO .QOD Spiriva Respimat 2.5 mcg/actuation Mist 2 puff INHALATION BID Discharge Orders: Discharge ED (Routine); Ordered 01/17/25 Ordered By: Juan Levin Referrals: Candace Cifuentes FNP [Primary Care Provider, Primary Care Provider] Activity Restrictions/Additional Instructions: Avoid exertion or rapid changes in position or heat. Come back if feeling like passing out, racing heart, difficulty breathing, lightheadedness, any worse or concerns. Please follow-up with your registered nurse cardiac telemetry and primary care doctor. Call your primary care doctor for prompt follow-up. Follow-up on your test results with your doctor. Print Language: Burmese Coding Level of Care Code ED [id number] Consultant for Consuelo Khan
[2025-01-17 14:33] LABS: Basophils # 0.1 10^3/uL (0.0-0.1); Basophils % 0.5 %; Eosinophils # 0.2 10^3/uL (0.0-0.8); Eosinophils % 1.4 %; Hematocrit 40.1 % (36-47); Lymphocytes # 1.5 10^3/uL (0.8-4.8); Mean Corpuscular HGB Conc 32.4 g/dL (30-55); Mean Corpuscular Volume 89.3 fl (85-98); Mean Platelet Volume 9.3 fL (7.4-10.4); Monocytes # 0.6 10^3/uL (0.2-0.9); Neutrophils # 8.24 10^3/uL (1.8-7.7); Neutrophils % 77.7 %; Nucleated Red Blood Cells % 0 %; Platelet Count 440 10^3/cmm (157-399); Red Blood Count 4.49 10^6/uL (3.85-5.65); Red Cell Distribution Width 14.6 % (12.1-15.1)
[2025-01-17] MEDS: sodium chloride 0.9% 500 ML 999 ML IV (14:39)
[2025-01-17 14:44] LABS: Alanine Aminotransferase 8 U/L (0-33); Albumin Level 4.1 g/dL (3.5-5.2); Alkaline Phosphatase 135 U/L (35-105); Anion Gap 16.8 (5-19); Aspartate Amino Transferase 11 U/L (0-32); Blood Urea Nitrogen 24 mg/dL (8-23); Calcium 8.9 mg/dL (8.5-10.5); Carbon Dioxide 24 mmol/L (22-29); Chloride 102 mmol/L (98-107); Globulin 2.1 g/dL (1.3-4.6); Glucose 149 mg/dL (65-115); Osmolality Calculated 295 mOsm/kg (285-295); Potassium 3.8 mmol/L (3.5-5.1); Sodium 139 mmol/L (136-145); Total Bilirubin 0.6 mg/dL (0.15-1.2); Total Protein 6.2 g/dL (6.6-8.7)
[2025-01-17 14:45] LABS: Troponin(5th) Baseline 7 ng/L (0-10)
[2025-01-17 15:00] VITALS: BP 123/67; PULSE 64; RESP 18; O2SAT 94
[2025-01-17 15:41] VITALS: BP 148/94; PULSE 69; RESP 16; O2SAT 95
== END 2025-01-17 15:42 | disposition home or self-care (01) ==
PROVIDERS: Emergency Provider Emergency Medicine; PCP Nurse Practitioner Family
DX: R00.2 Palpitations (principal); R42 Dizziness and giddiness; Z79.02 Long term (current) use of antithrombotics/antiplatelets; Z87.891 Personal history of nicotine dependence; J44.9 Chronic obstructive pulmonary disease, unspecified; E78.5 Hyperlipidemia, unspecified; I10 Essential (primary) hypertension
CPT/HCPCS: 36415; 80053; 84484; 85025; 93005; 96360; 99284; J7040

== ENCOUNTER → 2025-04-03 15:01 | Outpatient (BNVA) | payer MEDICARE, OTHER, SELFPAY | PROVIDERS: PCP Nurse Practitioner Family; Visit Provider Internal Medicine | DX: R07.89 Other chest pain (principal); R00.2 Palpitations; I25.10 Atherosclerotic heart disease of native coronary artery without angina pectoris; I10 Essential (primary) hypertension; I47.10 Supraventricular tachycardia, unspecified; E78.5 Hyperlipidemia, unspecified; J44.9 Chronic obstructive pulmonary disease, unspecified; Z79.02 Long term (current) use of antithrombotics/antiplatelets; Z79.82 Long term (current) use of aspirin; Z87.891 Personal history of nicotine dependence | CPT/HCPCS: 99213 ==

== ENCOUNTER → 2025-04-24 08:40 | Outpatient (BNVA) | payer OTHER, MEDICARE, SELFPAY | PROVIDERS: PCP Clinical Nurse Specialist Adult Health; Visit Provider Dermatology | DX: L82.1 Other seborrheic keratosis (principal); L81.4 Other melanin hyperpigmentation; L91.8 Other hypertrophic disorders of the skin; R20.8 Other disturbances of skin sensation; L53.8 Other specified erythematous conditions; L57.8 Other skin changes due to chronic exposure to nonionizing radiation | CPT/HCPCS: 17000; 17110; 99213 ==

== ENCOUNTER 2025-05-25 14:36 | Outpatient (CLI) | payer MEDICARE, OTHER, SELFPAY ==
--- NOTE | 2025-05-25 14:41 | XR_ITS ---
WS: [id number] XR shoulder RT min 2V* [id number] REASON FOR EXAM: PAIN IN RIGHT SHOULDER FINDINGS: No fracture or focal bone lesion. Moderate narrowing of the acromioclavicular joint with mild subchondral sclerosis and moderate osteophytosis. The glenohumeral joint space is not clearly demonstrated. There may be mild narrowing. Minimal subchondral sclerosis of the glenoid. Mild to moderate sclerosis and cystic change In the greater biceps tuberosity. XR/XR shoulder RT min 2V* [id number] IMPRESSION: Mild to moderate osteoarthritis of the acromioclavicular joint. Probable mild osteoarthritis in the glenohumeral joint. Mild to moderate rotato r cuff tendon arthropathy.
== END 2025-05-25 14:37 | disposition home or self-care (01) ==
LOC: LAB 14:36
PROVIDERS: PCP Clinical Nurse Specialist Adult Health; Visit Provider Nurse Practitioner Family
DX: M19.011 Primary osteoarthritis, right shoulder (principal)
CPT/HCPCS: 73030

== ENCOUNTER → 2025-06-22 12:20 | Outpatient (BNVA) | payer MEDICARE, OTHER, SELFPAY | PROVIDERS: PCP Clinical Nurse Specialist Adult Health; Visit Provider Internal Medicine | DX: I25.10 Atherosclerotic heart disease of native coronary artery without angina pectoris (principal); I10 Essential (primary) hypertension; I47.10 Supraventricular tachycardia, unspecified; E78.5 Hyperlipidemia, unspecified; J41.0 Simple chronic bronchitis; Z87.891 Personal history of nicotine dependence | CPT/HCPCS: 99214 ==